=== PATIENT | male | born 1955 | race Caucasian/White ===

== ENCOUNTER → 2018-05-24 13:51 | Outpatient (CLI) | payer OTHER, SELFPAY ==
--- NOTE | 2018-05-24 13:55 | DI.RAD.S_ITS ---
PROCEDURE: XR SCAPULA RT INDICATIONS: Pleurodynia TECHNIQUE: 2 views of the scapula were acquired. COMPARISON: [facility], SIVA, XR RIBS RT MIN 3V W CXR 1V, 05/24/2018, 13:39. [facility], SIVA, CHEST 2 VIEW, 02/24/2011, 16:17. FINDINGS: Bones: There may be nondisplaced right scapula fracture involving the body of the scapula. No suspicious bony lesions. Visualized ribs appear intact. Soft tissues: Overlying soft tissues appear normal. IMPRESSION: Possible nondisplaced right scapular fracture. Dictated by: Angus Mosley M.D. on 05/24/2018 at 14:35 Approved by: Angus Mosley M.D. on 05/24/2018 at 14:37
--- NOTE | 2018-05-24 13:55 | DI.RAD.S_ITS ---
PROCEDURE: XR RIBS RT MIN 3V W CXR 1V INDICATIONS: fall TECHNIQUE: 3 views of the right ribs were acquired, along with a single view chest. COMPARISON: None. FINDINGS: Surgical changes and devices: None. Bones and chest wall: Slightly displaced fracture of the lateral right, fouth, fifth and sixth rib. No suspicious bony lesions. Overlying soft tissues appear unremarkable. Lungs and pleura: No pleural effusions or pneumothorax. Lungs appear clear. Mediastinum: Mediastinal contours appear normal. Heart size is normal. IMPRESSION: Right fourth, fifth and six rib fractures. Dictated by: Angus Mosley M.D. on 05/24/2018 at 14:29 Approved by: Angus Mosley M.D. on 05/24/2018 at 14:35
== END ==
PROVIDERS: Visit Provider Physician Assistant
DX: S22.41XA Multiple fractures of ribs, right side, initial encounter for closed fracture (principal); R07.81 Pleurodynia
CPT/HCPCS: 71101; 73010

== ENCOUNTER 2019-01-05 08:58 | Day surgery (SDC) | payer OTHER, SELFPAY ==
--- NOTE | 2019-01-05 | PATH_ITS ---
[facility] Accession Number: [id number] . 01 Material submitted: . TRANSVERSE POLYP . 02 Diagnosis: Transverse Colon, Polyp, Biopsies: Tubular adenoma. MRV/01/06/2019 . 02 Electronically signed: . Delisa Spence MD, Pathologist NPI- [id number] . 01 Gross description: . Received in one formalin-filled container, labeled with the patient's name and labeled transverse polyp, are two 0.2-0.4 cm portions of tissue, entirely submitted in one cassette. ([id number]) /FRR . 02 Pathologist provided ICD-10: D12.3 . 02 CPT . 800158 Performed at: 01 [facility] [address] [id number] MD Elroy Swain MD Phone: [phone] Performed at: 02 [facility] [address] [place], [place] [id number] MD Delisa Spence MD Phone: [phone]
[2019-01-05 09:54] VITALS: BP 158/78; PULSE 68; RESP 16; TEMP 36.9; O2SAT 68; BMI 36.6
[2019-01-05] MEDS: SODIUM CHLORIDE 0.9% 1,000 ML 200 ML IV (10:15)
--- NOTE | 2019-01-05 11:16 | PM.HP.1 ---
History of Present Illness Chief complaint: [id number] COLONOSCOPY W/POSS BX Patient History Social History household members: spouse Smoking Status: Never smoker alcohol intake: current Family & Social History Social History: household members spouse Tobacco & Substance use: Smoking Status Never smoker alcohol intake current Meds Home Medications Medication Instructions Recorded Confirmed Type aspirin 81 mg PO QDAY #0 08/08/17 History diltiazem HCl 240 mg PO QDAY #0 08/08/17 History cyclobenzaprine 10 mg tablet 10 mg PO TID PRN #20 tab 05/24/18 Rx Allergies Allergy/AdvReac Type Severity Reaction Status Date / Time No Known Drug Allergies Allergy Verified 01/05/19 10:12 Review of Systems Review of Systems All systems reviewed & are unremarkable except as noted in HPI and below Exam Vital Signs (past 8 hours): - 01/05/19 09:54 Temperature 98.4 F Pulse Rate 68 Respiratory Rate 16 Blood Pressure 158/78 H Pulse Oximetry 68 L Oxygen Delivery Method Room Air Narrative Exam Narrative: Awake alert oriented x3, pupils equal round reactive to light, lungs clear, heart regular rate rhythm, abdomen soft, nontender, nondistended, and no lower extremity edema Assessment & Plan Assessment & Plan narrative: Colonoscopy for colon cancer screening
[2019-01-05] MEDS: MIDAZOLAM 5 MG/5 ML VIAL IV (11:30)
[2019-01-05] MEDS: fentaNYL 250 MCG/5 ML INJ IV (11:30)
[2019-01-05 11:50] VITALS: BP 141/103; PULSE 60; RESP 12; TEMP 36.9; O2SAT 94
--- NOTE | 2019-01-05 11:53 | PM.OP.ENDO ---
Operative Date/Time/Diagnoses Date of procedure: 01/05/19 Procedure & Clinicians Study performed: Colonoscopy with biopsy Moderate conscious sedation was administered by the endoscopy nurse and supervised by the endoscopist. The following parameters were monitored: Oxygen saturation, heart rate, blood pressure, and response to care. Sedation: 4 mg midazolam, 125 mcg fentanyl Indications: Colon cancer screening. History of colon polyps. Procedure Notes Procedure in detail: Prior to the procedure, history and physical was performed, and patient medications and allergies were reviewed. Preprocedure nursing history and assessment was reviewed. Patient identification and proposed procedure were verified by the physician and nurse in the procedure room. The physical status of the patient was reassessed after the procedure. After informed consent was obtained including risks, benefits, and alternatives, the scope was passed under direct vision. Throughout the procedure, the patient's blood pressure, pulse, and oxygen saturations were monitored continuously. The colonoscope was introduced through the anus and advanced to the cecum as identified by the appendiceal orifice and ileocecal valve. The patient tolerated the procedure well. Bowel prep was deemed adequate to detect polyps greater than 5 mm. Digital rectal examination and perianal examination unremarkable. Retroflexion revealed grade 1 internal hemorrhoids. Many medium mouth diverticula noted in the sigmoid and descending colon A 4 mm sessile polyp was removed from the transverse colon with a cold snare and biopsy forceps The appendiceal orifice was protuberant. This was probed with a biopsy forcep and seemed firm. No mucosal abnormalities were noted Impression: Internal hemorrhoids Left-sided diverticulosis 4 mm polyp removed from the transverse colon Abnormal appearing appendiceal orifice. Sedation minutes: 21 Complications: other (EBL minimal. No complications) Plan for aftercare: Consider performing a CT of the abdomen and pelvis with IV contrast to further evaluate the appendix Follow-up pathology results Repeat colonoscopy in 5 years for screening purposes High fiber diet Resume home medications Discharged home with escort
[2019-01-05 11:55] VITALS: BP 143/94; PULSE 66; RESP 12; TEMP 36.9; O2SAT 94
[2019-01-05 12:00] VITALS: BP 126/87; PULSE 68; RESP 12; TEMP 36.6; O2SAT 97
[2019-01-05 12:02] VITALS: BP 126/88; PULSE 62; RESP 15; TEMP 36.9; O2SAT 96
[2019-01-05 12:15] VITALS: BP 122/80; PULSE 68; RESP 20; TEMP 36.9; O2SAT 98
== END 2019-01-05 12:15 | disposition home or self-care (01) ==
PROVIDERS: PCP Internal Medicine; Visit Provider Internal Medicine
PROC: 0DJD8ZZ Inspection of Lower Intestinal Tract, Via Natural or Artificial Opening Endoscopic (ICD-10-PCS; CPT 45378; principal; 2019-01-05 10:30)
DX: Z86.010 Personal history of colon polyps (principal); K57.30 Diverticulosis of large intestine without perforation or abscess without bleeding; K64.0 First degree hemorrhoids; D12.3 Benign neoplasm of transverse colon
CPT/HCPCS: 45385; J2250; J3010

== ENCOUNTER → 2019-01-07 15:56 | Outpatient (CLI) | payer OTHER, SELFPAY ==
[2019-01-07 16:48] LABS: Blood Urea Nitrogen 16 mg/dL (9-20); Estimated Glomerular Filt Rate > 60.0 mL/min (>60)
== END ==
PROVIDERS: PCP Internal Medicine; Visit Provider Internal Medicine
DX: R93.3 Abnormal findings on diagnostic imaging of other parts of digestive tract (principal)
CPT/HCPCS: 36415; 82565; 84520

== ENCOUNTER → 2019-01-11 08:58 | Outpatient (CLI) | payer OTHER, SELFPAY ==
--- NOTE | 2019-01-11 | DI.CT.S_ITS ---
PROCEDURE: CT ABDOMEN PELVIS W CON INDICATIONS: Abnormal findings on diagnostic imaging of other TECHNIQUE: After the administration of oral and intravenous contrast, 5 mm thick sections acquired from the diaphragms to the symphysis. 5 mm thick coronal and sagittal reformats were performed. For radiation dose reduction, the following was used: automated exposure control, adjustment of mA and/or kV according to patient size. COMPARISON: None. FINDINGS: Image quality: Excellent. ABDOMEN: Lung bases: Lung bases are clear. Heart size is normal. Solid organs: Hepatic steatosis. Gallbladder unremarkable. Biliary system is non-dilated. Pancreas enhances normally. Spleen is normal in size and enhancement. No adrenal nodules. Kidneys are normal in size and enhancement, without hydronephrosis. Peritoneum and bowel: Stomach, small bowel, and colon loops are normal in caliber and wall thickness. No free fluid or air. Colonic diverticulosis is seen without evidence of acute complication. The appendix is normal in size however there is a 1 mm appendicolith seen at the orifice, image 56 series 2. No definite periappendiceal inflammatory stranding is identified. Rectum is grossly unremarkable Nodes and vessels: No retroperitoneal or mesenteric adenopathy. Aorta and inferior vena cava are normal in caliber. Miscellaneous: Umbilical hernia containing fat and a trace amount of fluid PELVIS: Genitourinary: Bladder partially decompressed otherwise grossly unremarkable. Miscellaneous: No inguinal hernias or adenopathy. Bones: No suspicious bony lesions. No vertebral body compression fractures. IMPRESSION: 1 mm appendicolith seen at the origin of the appendix. The appendix appears normal in size without definite adjacent inflammation. Recommend clinical and laboratory correlation. Colonic diverticulosis. Small umbilical hernia containing fat and fluid. Hepatic steatosis Dictated by: Esvin Phan M.D. on 01/11/2019 at 12:01 Approved by: Esvin Phan M.D. on 01/11/2019 at 12:08
== END ==
PROVIDERS: PCP Internal Medicine; Visit Provider Internal Medicine
DX: R93.3 Abnormal findings on diagnostic imaging of other parts of digestive tract (principal); K38.1 Appendicular concretions; K57.90 Diverticulosis of intestine, part unspecified, without perforation or abscess without bleeding; K42.9 Umbilical hernia without obstruction or gangrene; K76.0 Fatty (change of) liver, not elsewhere classified
CPT/HCPCS: 74177; Q9967

== ENCOUNTER 2019-04-23 10:15 | Emergency (ER) | payer OTHER, SELFPAY ==
[2019-04-23] VITALS (9 sets, daily range): BP systolic 122–165; BP diastolic 72–99; PULSE 55–81; RESP 14–19; TEMP 36.7; O2SAT 95–100
--- NOTE | 2019-04-23 10:29 | ED.CHESTPAIN ---
HPI - Chest Pain General Chief Complaint: Chest Pain Stated Complaint: went into Afib last night Time Seen by Provider: 04/23/19 10:29 Source: patient Mode of arrival: ambulatory Limitations: no limitations History of Present Illness HPI narrative: Patient is 63-year-old male who presents with atrial fibrillation. He has a history of paroxysmal atrial fibrillation. He said he was cardioverted in the emergency department 3 years ago he has not had any problems since. He takes an aspirin and Cardizem daily although he did take his Cardizem this morning. He denies dizziness lightheadedness. He just feels a irregular in his chest. He has no shortness of breath. He says he went into this less than 24 hours ago, thinks sometime last evening. He thought if he went to sleep it might convert itself. MD complaint: chest pain Duration: constant Onset: during rest Related Data Home Medications Medication Instructions Recorded Confirmed aspirin 81 mg PO QDAY #0 08/08/17 diltiazem HCl 240 mg PO QDAY #0 08/08/17 Previous Rx's Medication Instructions Recorded cyclobenzaprine 10 mg tablet 10 mg PO TID PRN #20 tab 05/24/18 Allergies Allergy/AdvReac Type Severity Reaction Status Date / Time No Known Drug Allergies Allergy Verified 01/05/19 10:12 Review of Systems Review of Systems GENERAL: Denies chills, fatigue, malaise, fever, sweats, travel HEENT: Denies sinus pain, ear pain, sore throat, difficulty swallowing, neck pain RESPIRATORY: Denies dyspnea, cough, wheezing, hemoptysis, sputum. CARDIOVASCULAR: See HPI GASTROINTESTINAL: Denies nausea, vomiting, abdominal pain, diarrhea, constipation, melena. : Denies dysuria, frequency, incontinence, hematuria, urinary retention, flank pain. MUSCULOSKELETAL: Denies weakness, joint pain, or bony pain SKIN: No rash, no erythema, no pruritus NEUROLOGIC: Denies weakness, dizziness, headache, numbness, change in speech, confusion PSYCHIATRIC: No concerning psychosocial issues. 12 point review of systems is negative except for those stated above and HPI [facility] Medical History Atrial fibrillation (Acute) Hyperlipidemia (Acute) Social History household members: spouse Smoking Status: Never smoker alcohol intake: current Social History household members: spouse Smoking Status: Never smoker alcohol intake: current Exam Initial Vital Signs Initial Vital Signs: Vital Signs Temperature 98.1 F 04/23/19 10:15 Pulse Rate 77 04/23/19 10:15 Respiratory Rate 18 04/23/19 10:15 Blood Pressure 165/88 H 04/23/19 10:15 Pulse Oximetry 99 04/23/19 10:15 GENERAL: Well-appearing, well-nourished and in no acute distress. HEENT: Head atraumatic,EOMI, pupils reactive CARDIOVASCULAR: Irregularly irregular RESPIRATORY: Breath sounds equal bilaterally, no wheezes rales or rhonchi. ABDOMEN: Soft, nontender. Normoactive bowel sounds all 4 quadrants. No guarding or rebound. : No CVA tenderness EXTREMITIES: Normal range of motion, no clubbing or edema. Neurovascularly intact NEUROLOGICAL: Alert and oriented x4.Normal gait and speech. Cranial nerves II through XII grossly intact. SKIN: Warm, dry, no laceration, no petechiae, no rashes or lesions. Procedures Cardioversion Consent Signed: Yes Indication: atrial fibrillation Cardiac rhythm prior to cardioversion: Atrial fibrillation Stability: Stable Number of attempts (shocks): 1 Joules used: 150 Procedural Sedation Patient Age: Patient is 5yrs or older Consent signed: Yes Time out performed: Yes Indication: cardioversion ASA Class: II Mallampati Airway Classification: Class II Preparation: eyewear manufacturing tech applied, pulse oximeter, capnometry used, supplemental O2 applied and reversal agents at bedside IV Etomidate dose (mg): 10 Intraservice time/total sedation time (min): 15 ED Sedation Level: Moderate (Concious) Complications: none Course Orders Ordered: ED Orders 04/23/19 10:20 Complete Blood Count AUTO DIFF Stat Comprehensive Metabolic Panel Stat Magnesium Stat Partial Thromboplastin Time Stat Prothrombin Time INR Stat Thyroid Stimulating Hormone Stat Troponin & CK Cardiac Panel Stat 04/23/19 10:38 XR chest 1V Stat 04/23/19 12:04 EKG-12 Lead Stat Discontinued Medications Aspirin (Aspirin Chew) 324 mg PO NOW ONE Stop: 04/23/19 12:35 Last Admin: 04/23/19 12:57 Dose: 324 mg Diltiazem HCl (Cardizem) 20 mg IV NOW ONE Stop: 04/23/19 10:38 Last Admin: 04/23/19 10:44 Dose: 20 mg Etomidate (Amidate) 10 mg IV NOW ONE Stop: 04/23/19 11:15 Last Admin: 04/23/19 11:58 Dose: 10 mg Sodium Chloride (Normal Saline 0.9%) 1,000 mls @ 1,000 mls/hr IV CONT JEREMI Last Infusion: 04/23/19 11:43 Dose: 1,000 mls/hr Admin: 04/23/19 10:43 Dose: 1,000 mls/hr Vital Signs - 8 hr 04/23/19 10:44 04/23/19 11:00 04/23/19 11:40 Pulse Rate 59 L 55 L 57 L Respiratory Rate 16 16 Blood Pressure 143/83 H Blood Pressure [Right Arm] 140/73 129/79 Pulse Oximetry 96 96 04/23/19 11:55 04/23/19 12:04 04/23/19 12:10 Pulse Rate 81 68 65 Respiratory Rate 18 14 19 Blood Pressure Blood Pressure [Right Arm] 154/72 H 153/88 H 145/99 H Pulse Oximetry 99 100 99 04/23/19 12:30 04/23/19 12:57 Pulse Rate 58 L 65 Respiratory Rate 15 16 Blood Pressure Blood Pressure [Right Arm] 122/82 Pulse Oximetry 95 MDM - Chest Pain Lab Data Attestation: I reviewed the patient's lab results. Result diagrams: 04/23/19 10:20 04/23/19 10:20 Lab Results 04/23/19 04/23/19 04/23/19 Range/Units 10:20 10:20 10:20 WBC 9.2 (4.5-11.0) X10^3/uL RBC 5.68 (4.5-5.9) X10^6/uL Hgb 17.8 H (13.5-17.5) g/dL Hct 51.8 (41-53) % MCV 91.2 (80-100) fL MCH 31.3 (26-34) PG MCHC 34.4 (30-36) % RDW 13.3 (11.6-14.8) % Plt Count 221 (150-400) X10^3/uL Neut % (Auto) 64.6 (50-75) % Lymph % (Auto) 24.2 L (25-40) % Callaway % (Auto) 10.1 (3-14) % Eos % (Auto) 0.9 L (2-4) % Baso % (Auto) 0.2 (0-2) % Neut # (Auto) 6000 (7397-5312) /uL Lymph # (Auto) 2200 (1357-8120) /uL Callaway # (Auto) 900 (0-900) /uL Eos # (Auto) 100 (0-450) /uL Baso # (Auto) 0 (0-100) /uL PT 12.5 (10.1-12.7) SECONDS INR 1.1 (0.9-1.3) APTT 36 (26.4-36.2) SECONDS Sodium 144 (137-145) mmol/L Potassium 3.8 (3.4-5.1) mmol/L Chloride 104 (98-107) mmol/L Carbon Dioxide 30 (22-32) mmol/L BUN 12 (9-20) mg/dL Creatinine 0.90 (0.66-1.25) mg/dL Estimated GFR > 60.0 (>60) mL/min BUN/Creatinine Ratio 13.3 (6-22) Glucose 131 H (80-110) mg/dL Calcium 9.6 (8.4-10.2) mg/dL Magnesium (1.6-2.3) mg/dL Total Bilirubin 1.3 (0.2-1.3) mg/dL AST 24 (17-59) IU/L ALT 24 (21-72) IU/L Alkaline Phosphatase 83 (38-126) U/L Total Creatine Kinase (55-170) U/L CK-MB (CK-2) CK-MB (CK-2) Rel Index Troponin I (0.01-0.034) ng/mL Total Protein 8.0 (6.3-8.2) g/dL Albumin 4.6 (3.5-5.0) g/dL Globulin 3.4 (1.7-4.1) g/dL Albumin/Globulin Ratio 1.4 (1.0-2.8) TSH (0.47-4.68) uIU/mL 04/23/19 04/23/19 Range/Units 10:20 10:20 WBC (4.5-11.0) X10^3/uL RBC (4.5-5.9) X10^6/uL Hgb (13.5-17.5) g/dL Hct (41-53) % MCV (80-100) fL MCH (26-34) PG MCHC (30-36) % RDW (11.6-14.8) % Plt Count (150-400) X10^3/uL Neut % (Auto) (50-75) % Lymph % (Auto) (25-40) % Callaway % (Auto) (3-14) % Eos % (Auto) (2-4) % Baso % (Auto) (0-2) % Neut # (Auto) (2519-0113) /uL Lymph # (Auto) (2946-3670) /uL Callaway # (Auto) (0-900) /uL Eos # (Auto) (0-450) /uL Baso # (Auto) (0-100) /uL PT (10.1-12.7) SECONDS INR (0.9-1.3) APTT (26.4-36.2) SECONDS Sodium (137-145) mmol/L Potassium (3.4-5.1) mmol/L Chloride (98-107) mmol/L Carbon Dioxide (22-32) mmol/L BUN (9-20) mg/dL Creatinine (0.66-1.25) mg/dL Estimated GFR (>60) mL/min BUN/Creatinine Ratio (6-22) Glucose (80-110) mg/dL Calcium (8.4-10.2) mg/dL Magnesium 2.1 (1.6-2.3) mg/dL Total Bilirubin (0.2-1.3) mg/dL AST (17-59) IU/L ALT (21-72) IU/L Alkaline Phosphatase (38-126) U/L Total Creatine Kinase 58 (55-170) U/L CK-MB (CK-2) TNP CK-MB (CK-2) Rel Index TNP Troponin I < 0.012 (0.01-0.034) ng/mL Total Protein (6.3-8.2) g/dL Albumin (3.5-5.0) g/dL Globulin (1.7-4.1) g/dL Albumin/Globulin Ratio (1.0-2.8) TSH 2.04 (0.47-4.68) uIU/mL Imaging Data Chest x-ray: Radiologist's impression: PROCEDURE: XR CHEST 1V INDICATIONS: chest pain TECHNIQUE: One view of the chest was acquired. COMPARISON: [facility], CHEST 2 VIEW, 02/24/2011, 16:17. FINDINGS: Surgical changes and devices: None. Lungs and pleura: Lungs are clear. No pleural effusions or pneumothorax. Mediastinum: Mediastinal contours appear normal. Heart size is normal. Bones and chest wall: No suspicious bony lesions. Overlying soft tissues appear unremarkable. IMPRESSION: Stable chest. No acute cardiopulmonary process is evident. Dictated by: Brendan Espino M.D. on 04/23/2019 at 10:14 ECG Data Attestation: I personally reviewed and interpreted this ECG as follows: Prior ECG tracings: available for review Interpretation: EKG 1. Atrial fibrillation rate [address] changes EKG 2. Sinus rhythm rate [address] changes MDM Narrative Medical decision making narrative: Patient feeling back to normal after cardioversion. He will follow up with PCP. SEGUN?DS?-VASc Score for Atrial Fibrillation Stroke Risk from [employer] on 04/23/2019 All calculations should be rechecked by clinician prior to use RESULT SUMMARY: 0 points Stroke risk was 0.2% per year in >90,000 patients (the [place] Atrial Fibrillation Cohort Study) and 0.3% risk of stroke/TIA/systemic embolism. One recommendation suggests a 0 score is ?low? risk and may not require anticoagulation; a 1 score is ?low-moderate? risk and should consider antiplatelet or anticoagulation, and score 2 or greater is ?moderate-high? risk and should otherwise be an anticoagulation candidate. INPUTS: Age ?> 0 = <65 Sex ?> 0 = Male CHF history ?> 0 = No Hypertension history ?> 0 = No Stroke/TIA/thromboembolism history ?> 0 = No Vascular disease history ?> 0 = No Diabetes history ?> 0 = No Discharge Plan Departure Patient Disposition: Home Clinical Impression: Paroxysmal A-fib Discharge Date/Time: 04/23/19 13:05 Interventions: ED Discharge Assessment Last Done: 04/23/19 14:05 Instructions: Atrial Fibrillation Activity Restrictions/Additional Instructions: *You have been diagnosed with atrial fibrillation *What to do: If you continue to have frequent episodes you may need change in medication please follow-up with your primary care provider and/or your housing management representative. Atrial fibrillation can and but you at risk for stroke *Continue to take medications as directed Aspirin 81 mg once daily *Follow up with your primary care provider in 2-3 days *Return to ER if you should have increasing chest pain heart palpitation or any new, worsening or concerning symptoms Prescriptions: No Action cyclobenzaprine 10 mg tablet 10 mg PO TID PRN (Reason: muscle spasm) Qty: 20 RF: 0 aspirin 81 MG tablet,delayed release (DR/EC) 81 mg PO QDAY Qty: 0 RF: 0 diltiazem HCl 240 MG capsule,extended release 24hr 240 mg PO QDAY Qty: 0 RF: 0 Referrals: Henry De Souza MD [Primary Care Provider] -
--- NOTE | 2019-04-23 10:37 | ED_ITS ---
HPI - Chest Pain General Chief Complaint: Chest Pain Stated Complaint: went into Afib last night Time Seen by Provider: 04/23/19 10:29 Source: patient Mode of arrival: ambulatory Limitations: no limitations History of Present Illness HPI narrative: Patient is 63-year-old male who presents with atrial fibrillation. He has a history of paroxysmal atrial fibrillation. He said he was cardioverted in the emergency department 3 years ago he has not had any problems since. He takes an aspirin and Cardizem daily although he did take his Cardizem this morning. He denies dizziness lightheadedness. He just feels a i rregular in his chest. He has no shortness of breath. He says he went into this less than 24 hours ago, thinks sometime last evening. He thought if he went to sleep it might convert itself. MD complaint: chest pain Duration: constant Onset: during rest Related Data Home Medications Medication Instructions Recorded Confirmed aspirin 81 mg PO QDAY #0 08/08/17 diltiazem HCl 240 mg PO QDAY #0 08/08/17 Previous Rx's Medication Instructions Recorded cyclobenzaprine 10 mg tablet 10 mg PO TID PRN #20 tab 05/24/18 Allergies Allergy/AdvReac Type Severity Reaction Status Date / Time No Known Drug Allergies Allergy Verified 01/05/19 10:12 Review of Systems Review of Systems GENERAL: Denies chills, fatigue, malaise, fever, sweats, travel HEENT: Denies sinus pain, ear pain, sore throat, difficulty swallowing, neck pain RESPIRATORY: Denies dyspnea, cough, wheezing, hemoptysis, sputum. CARDIOVASCULAR: See HPI GASTROINTESTINAL: Denies nausea, vomiting, abdominal pain, diarrhea, constipation, melena. : Denies dysuria, frequency, incontinence, hematuria, urinary retention, flank pain. MUSCULOSKELETAL: Denies weakness, joint pain, or bony pain SKIN: No rash, no erythema, no pruritus NEUROLOGIC: Denies weakness, dizziness, headache, numbness, change in speech, confusion PSYCHIATRIC: No concerning psychosocial issues. 12 point review of systems is negative except for those stated above and HPI COUNT INCLUDES [facility] Medical History Atrial fibrillation (Acute) Hyperlipidemia (Acute) Social History household members: spouse Smoking Status: Never smoker alcohol intake: current Social History household members: spouse Smoking Status: Never smoker alcohol intake: current Exam Initial Vital Signs Initial Vital Signs: Vital Signs Temperature 98.1 F 04/23/19 10:15 Pulse Rate 77 04/23/19 10:15 Respiratory Rate 18 04/23/19 10:15 Blood Pressure 165/88 H 04/23/19 10:15 Pulse Oximetry 99 04/23/19 10:15 GENERAL: Well-appearing, well-nourished and in no acute distress. HEENT: Head atraumatic,EOMI, pupils reactive CARDIOVASCULAR: Irregularly irregular RESPIRATORY: Breath sounds equal bilaterally, no wheezes rales or rhonchi. ABDOMEN: Soft, nontender. Normoactive bowel sounds all 4 quadrants. No guarding or rebound. : No CVA tenderness EXTREMITIES: Normal range of motion, no clubbing or edema. Neurovascularly inta ct NEUROLOGICAL: Alert and oriented x4.Normal gait and speech. Cranial nerves II through XII grossly intact. SKIN: Warm, dry, no laceration, no petechiae, no rashes or lesions. Procedures Cardioversion Consent Signed: Yes Indication: atrial fibrillation Cardiac rhythm prior to cardioversion: Atrial fibrillation Stability: Stable Number of attempts (shocks): 1 Joules used: 150 Procedural Sedation Patient Age: Patient is 5yrs or older Consent signed: Yes Time out performed: Yes Indication: cardioversion ASA Class: II Mallampati Airway Classification: Class II Preparation: awake overnight monitor applied, pulse oximeter, capnometry used, supplemental O2 applied and reversal agents at bedside IV Etomidate dose (mg): 10 Intraservice time/total sedation time (min): 15 ED Sedation Level: Moderate (Concious) Complications: none Course Orders Ordered: ED Orders 04/23/19 10:20 Complete Blood Count AUTO DIFF Stat Comprehensive Metabolic Panel Stat Magnesium Stat Partial Thromboplastin Time Stat Prothrombin Time INR Stat Thyroid Stimulating Hormone Stat Troponin & CK Cardiac Panel Stat 04/23/19 10:38 XR chest 1V Stat 04/23/19 12:04 EKG-12 Lead Stat Discontinued Medications Aspirin (Aspirin Chew) 324 mg PO NOW ONE Stop: 04/23/19 12:35 Last Admin: 04/23/19 12:57 Dose: 324 mg Diltiazem HCl (Cardizem) 20 mg IV NOW ONE Stop: 04/23/19 10:38 Last Admin: 04/23/19 10:44 Dose: 20 mg Etomidate (Amidate) 10 mg IV NOW ONE Stop: 04/23/19 11:15 Last Admin: 04/23/19 11:58 Dose: 10 mg Sodium Chloride (Normal Saline 0.9%) 1,000 mls @ 1,000 mls/hr IV CONT JEREMI Last Infusion: 04/23/19 11:43 Dose: 1,000 mls/hr Admin: 04/23/19 10:43 Dose: 1,000 mls/hr Vital Signs - 8 hr 04/23/19 10:44 04/23/19 11:00 04/23/19 11:40 Pulse Rate 59 L 55 L 57 L Respiratory Rate 16 16 Blood Pressure 143/83 H Blood Pressure [Right Arm] 140/73 129/79 Pulse Oximetry 96 96 04/23/19 11:55 04/23/19 12:04 04/23/19 12:10 Pulse Rate 81 68 65 Respiratory Rate 18 14 19 Blood Pressure Blood Pressure [Right Arm] 154/72 H 153/88 H 145/99 H Pulse Oximetry 99 100 99 04/23/19 12:30 04/23/19 12:57 Pulse Rate 58 L 65 Respiratory Rate 15 16 Blood Pressure Blood Pressure [Right Arm] 122/82 Pulse Oximetry 95 MDM - Chest Pain Lab Data Attestation: I reviewed the patient's lab results. Result diagrams: 04/23/19 10:20 04/23/19 10:20 Lab Results 04/23/19 04/23/19 04/23/19 Range/Units 10:20 10:20 10:20 WBC 9.2 (4.5-11.0) X10^3/uL RBC 5.68 (4.5-5.9) X10^6/uL Hgb 17.8 H (13.5-17.5) g/dL Hct 51.8 (41-53) % MCV 91.2 (80-100) fL MCH 31.3 (26-34) PG MCHC 34.4 (30-36) % RDW 13.3 (11.6-14.8) % Plt Count 221 (150-400) X10^3/uL Neut % (Auto) 64.6 (50-75) % Lymph % (Auto) 24.2 L (25-40) % [place] % (Auto) 10.1 (3-14) % Eos % (Auto) 0.9 L (2-4) % Baso % (Auto) 0.2 (0-2) % Neut # (Auto) 6000 (5156-5916) /uL Lymph # (Auto) 2200 (8421-9414) /uL [place] # (Auto) 900 (0-900) /uL Eos # (Auto) 100 (0-450) /uL Baso # (Auto) 0 (0-100) /uL PT 12.5 (10.1-12.7) SECONDS INR 1.1 (0.9-1.3) APTT 36 (26.4-36.2) SECONDS Sodium 144 (137-145) mmol/L Potassium 3.8 (3.4-5.1) mmol/L Chloride 104 (98-107) mmol/L Carbon Dioxide 30 (22-32) mmol/L BUN 12 (9-20) mg/dL Creatinine 0.90 (0.66-1.25) mg/dL Estimated GFR > 60.0 (>60) mL/min BUN/Creatinine Ratio 13.3 (6-22) Glucose 131 H (80-110) mg/dL Calcium 9.6 (8.4-10.2) mg/dL Magnesium (1.6-2.3) mg/dL Total Bilirubin 1.3 (0.2-1.3) mg/dL AST 24 (17-59) IU/L ALT 24 (21-72) IU/L Alkaline Phosphatase 83 (38-126) U/L Total Creatine Kinase (55-170) U/L CK-MB (CK-2) CK-MB (CK-2) Rel Index Troponin I (0.01-0.034) ng/mL Total Protein 8.0 (6.3-8.2) g/dL Albumin 4.6 (3.5-5.0) g/dL Globulin 3.4 (1.7-4.1) g/dL Albumin/Globulin Ratio 1.4 (1.0-2.8) TSH (0.47-4.68) uIU/mL 04/23/19 04/23/19 Range/Units 10:20 10:20 WBC (4.5-11.0) X10^3/uL RBC (4.5-5.9) X10^6/uL Hgb (13.5-17.5) g/dL Hct (41-53) % MCV (80-100) fL MCH (26-34) PG MCHC (30-36) % RDW (11.6-14.8) % Plt Count (150-400) X10^3/uL Neut % (Auto) (50-75) % Lymph % (Auto) (25-40) % [place] % (Auto) (3-14) % Eos % (Auto) (2-4) % Baso % (Auto) (0-2) % Neut # (Auto) (7061-0630) /uL Lymph # (Auto) (2996-0602) /uL [place] # (Auto) (0-900) /uL Eos # (Auto) (0-450) /uL Baso # (Auto) (0-100) /uL PT (10.1-12.7) SECONDS INR (0.9-1.3) APTT (26.4-36.2) SECONDS Sodium (137-145) mmol/L Potassium (3.4-5.1) mmol/L Chloride (98-107) mmol/L Carbon Dioxide (22-32) mmol/L BUN (9-20) mg/dL Creatinine (0.66-1.25) mg/dL Estimated GFR (>60) mL/min BUN/Creatinine Ratio (6-22) Glucose (80-110) mg/dL Calcium (8.4-10.2) mg/dL Magnesium 2.1 (1.6-2.3) mg/dL Total Bilirubin (0.2-1.3) mg/dL AST (17-59) IU/L ALT (21-72) IU/L Alkaline Phosphatase (38-126) U/L Total Creatine Kinase 58 (55-170) U/L CK-MB (CK-2) TNP CK-MB (CK-2) Rel Index TNP Troponin I < 0.012 (0.01-0.034) ng/mL Total Protein (6.3-8.2) g/dL Albumin (3.5-5.0) g/dL Globulin (1.7-4.1) g/dL Albumin/Globulin Ratio (1.0-2.8) TSH 2.04 (0.47-4.68) uIU/mL Imaging Data Chest x-ray: Radiologist's impression: PROCEDURE: XR CHEST 1V INDICATIONS: chest pain TECHNIQUE: One view of the chest was acquired. COMPARISON: [facility], CHEST 2 VIEW, 02/24/2011, 16:17. FINDINGS: Surgical changes and devices: None. Lungs and pleura: Lungs are clear. No pleural effusions or pneumothorax. Mediastinum: Mediastinal contours appear normal. Heart size is normal. Bones and chest wall: No suspicious bony lesions. Overlying soft tissues appear unremarkable. IMPRESSION: Stable chest. No acute cardiopulmonary process is evident. Dictated by: Brendan Espino M.D. on 04/23/2019 at 10:14 ECG Data Attestation: I personally reviewed and interpreted this ECG as follows: Prior ECG tracings: available for review Interpretation: EKG 1. Atrial fibrillation rate [address] changes EKG 2. Sinus rhythm rate [address] changes MDM Narrative Medical decision making narrative: Patient feeling back to normal after cardioversion. He will follow up with PCP. SEGUN?DS?-VASc Score for Atrial Fibrillation Stroke Risk from [email or web address] on 04/23/2019 All calculations should be rechecked by clinician prior to use RESULT SUMMARY: 0 points Stroke risk was 0.2% per year in >90,000 patients (the [place] Atrial Fibrillation Cohort Study) and 0.3% risk of stroke/TIA/systemic embolism. One recommendation suggests a 0 score is ?low? risk and may not require anticoagulation; a 1 score is ?low-moderate? risk and should consider antiplatelet or anticoagulation, and score 2 or greater is ?moderate-high? risk and should otherwise be an anticoagulation candidate. INPUTS: Age ?> 0 = <65 Sex ?> 0 = Male CHF history ?> 0 = No Hypertension history ?> 0 = No Stroke/TIA/thromboembolism history ?> 0 = No Vascular disease history ?> 0 = No Diabetes history ?> 0 = No Discharge Plan Departure Patient Disposition: Home Clinical Impression: Paroxysmal A-fib Discharge Date/Time: 04/23/19 13:05 Interventions: ED Discharge Assessment Last Done: 04/23/19 14:05 Instructions: Atrial Fibrillation Activity Restrictions/Additional Instructions: *You have been diagnosed with atrial fibrillation *What to do: If you continue to have frequent episodes you may need change in medication please follow-up with your primary care provider and/or your manager trust. Atrial fibrillation can and but you at risk for stroke *Continue to take medications as directed Aspirin 81 mg once daily *Follow up with your primary care provider in 2-3 days *Return to ER if you should have increasing chest pain heart palpitation or any new, worsening or concerning symptoms Prescriptions: No Action cyclobenzaprine 10 mg tablet 10 mg PO TID PRN (Reason: muscle spasm) Qty: 20 RF: 0 aspirin 81 MG tablet,delayed release (DR/EC) 81 mg PO QDAY Qty: 0 RF: 0 diltiazem HCl 240 MG capsule,extended release 24hr 240 mg PO QDAY Qty: 0 RF: 0 Referrals: Henry De Souza MD [Primary Care Provider] -
[2019-04-23] MEDS: SODIUM CHLORIDE 0.9% 1,000 ML 1000 ML IV (10:43)
[2019-04-23] MEDS: dilTIAZem 5 MG/ML SDV 20 MG IV (10:44)
[2019-04-23 10:56] LABS: INR 1.1 (0.9-1.3); Prothrombin Time 12.5 SECONDS (10.1-12.7)
[2019-04-23 10:58] LABS: Add Manual Diff / Slide Review NO; Basophils Absolute Auto 0 /uL (0-100); Basophils Percent Auto 0.2 % (0-2); Eosinophils Absolute Auto 100 /uL (0-450); Eosinophils Percent Auto 0.9 % (2-4); Hematocrit 51.8 % (41-53); Hemoglobin 17.8 g/dL (13.5-17.5); Lymphocytes Absolute Auto 2200 /uL (1100-4500); Lymphocytes Percent Auto 24.2 % (25-40); Mean Corpuscular HGB Conc 34.4 % (30-36); Mean Corpuscular Hemoglobin 31.3 PG (26-34); Mean Corpuscular Volume 91.2 fL (80-100); Monocytes Absolute Auto 900 /uL (0-900); Monocytes Percent Auto 10.1 % (3-14); Neutrophils Absolute Auto 6000 /uL (1500-7000); Neutrophils Percent Auto 64.6 % (50-75); Platelet Count 221 X10^3/uL (150-400); Red Blood Cell Count 5.68 X10^6/uL (4.5-5.9); Red Cell Distribution Width 13.3 % (11.6-14.8); White Blood Cell Count 9.2 X10^3/uL (4.5-11.0)
[2019-04-23 10:59] LABS: PTT Partial Thromboplastin Tim 36 SECONDS (26.4-36.2)
[2019-04-23 11:00] LABS: Creatine Kinase 58 U/L (55-170); Magnesium 2.1 mg/dL (1.6-2.3)
[2019-04-23 11:01] LABS: Alanine Aminotransferase 24 IU/L (21-72); Albumin 4.6 g/dL (3.5-5.0); Albumin Globulin Ratio 1.4 (1.0-2.8); Alkaline Phosphatase 83 U/L (38-126); Aspartate Aminotransferase 24 IU/L (17-59); BUN Creatinine Ratio 13.3 (6-22); Bilirubin Total 1.3 mg/dL (0.2-1.3); Blood Urea Nitrogen 12 mg/dL (9-20); Calcium 9.6 mg/dL (8.4-10.2); Carbon Dioxide 30 mmol/L (22-32); Chloride 104 mmol/L (98-107); Estimated Glomerular Filt Rate > 60.0 mL/min (>60); Globulin 3.4 g/dL (1.7-4.1); Glucose 131 mg/dL (80-110); HEMOLYSIS < 15 (0-50); Potassium 3.8 mmol/L (3.4-5.1); Sodium 144 mmol/L (137-145)
[2019-04-23 11:13] LABS: Troponin I < 0.012 ng/mL (0.01-0.034)
[2019-04-23 11:41] LABS: Thyroid Stimulating Hormone 2.04 uIU/mL (0.47-4.68)
[2019-04-23] MEDS: ETOMIDATE 2 MG/ML VIAL 10 MG IV (11:58)
[2019-04-23] MEDS: ASPIRIN 81 MG TAB 324 MG PO (12:57)
--- NOTE | 2019-04-23 13:48 | PC.NURSE ---
pt tolerated cardioversion well. pt spouse back to room after conversion.
== END 2019-04-23 13:05 | disposition home or self-care (01) ==
PROVIDERS: Emergency Provider Emergency Medicine; PCP Internal Medicine
DX: I48.0 Paroxysmal atrial fibrillation (principal); Z79.82 Long term (current) use of aspirin
CPT/HCPCS: 36591; 71045; 80053; 82550; 83735; 84443; 84484; 85025; 85610; 85730; 92960; 93005; 93010; 93041; 94770; 96361; 96374; 96375; 99285

== ENCOUNTER 2020-03-31 13:59 | Emergency (ER) | payer OTHER, SELFPAY ==
[2020-03-31] VITALS (13 sets, daily range): BP systolic 122–173; BP diastolic 61–104; PULSE 61–100; RESP 12–27; TEMP 36.9; O2SAT 93–98; BMI 36.6
--- NOTE | 2020-03-31 14:17 | DI.RAD.S_ITS ---
PROCEDURE: XR CHEST 1V INDICATIONS: afib TECHNIQUE: One view of the chest was acquired. COMPARISON: [facility], CR, XR CHEST 1V, 04/23/2019, 11:02. FINDINGS: Surgical changes and devices: None. Lungs and pleura: Lungs are clear. No pleural effusions or pneumothorax. Mediastinum: Mediastinal contours appear normal. The heart appears to be enlarged. There is aortic atherosclerosis. Bones and chest wall: No suspicious bony lesions. Overlying soft tissues appear unremarkable. IMPRESSION: No acute cardiopulmonary process is evident. Dictated by: Brendan Espino M.D. on 03/31/2020 at 13:40 Approved by: Brendan Espino M.D. on 03/31/2020 at 13:42
[2020-03-31 14:29] LABS: Add Manual Diff / Slide Review NO; Basophils Absolute Auto 0 /uL (0-100); Basophils Percent Auto 0.5 % (0-2); Eosinophils Absolute Auto 0 /uL (0-450); Eosinophils Percent Auto 0.5 % (2-4); Hemoglobin 17.5 g/dL (13.5-17.5); Lymphocytes Absolute Auto 2400 /uL (1100-4500); Lymphocytes Percent Auto 30.4 % (25-40); Mean Corpuscular HGB Conc 35.6 % (30-36); Mean Corpuscular Hemoglobin 32.4 PG (26-34); Mean Corpuscular Volume 90.8 fL (80-100); Monocytes Absolute Auto 800 /uL (0-900); Monocytes Percent Auto 10.4 % (3-14); Neutrophils Absolute Auto 4600 /uL (1500-7000); Neutrophils Percent Auto 58.2 % (50-75); Platelet Count 191 X10^3/uL (150-400); Red Blood Cell Count 5.39 X10^6/uL (4.5-5.9); Red Cell Distribution Width 13.7 % (11.6-14.8); White Blood Cell Count 7.9 X10^3/uL (4.5-11.0)
[2020-03-31 14:30] LABS: Prothrombin Time 11.6 SECONDS (10.1-12.7)
[2020-03-31 14:33] LABS: PTT Partial Thromboplastin Tim 31 SECONDS (26.4-36.2)
[2020-03-31 14:39] LABS: Alanine Aminotransferase 36 IU/L (<50); Albumin 4.7 g/dL (3.5-5.0); Albumin Globulin Ratio 1.4 (1.0-2.8); Alkaline Phosphatase 87 U/L (38-126); Aspartate Aminotransferase 50 IU/L (17-59); Bilirubin Total 0.9 mg/dL (0.2-1.3); Blood Urea Nitrogen 15 mg/dL (9-20); Calcium 9.3 mg/dL (8.4-10.2); Carbon Dioxide 27 mmol/L (22-32); Chloride 105 mmol/L (98-107); Creatine Kinase 70 U/L (55-170); Estimated Glomerular Filt Rate > 60.0 mL/min (>60); Globulin 3.3 g/dL (1.7-4.1); Glucose 114 mg/dL (80-110); HEMOLYSIS 21 (0-50); Magnesium 2.1 mg/dL (1.6-2.3); Potassium 3.8 mmol/L (3.4-5.1); Sodium 138 mmol/L (137-145)
[2020-03-31 14:50] LABS: Troponin I < 0.012 ng/mL (0.01-0.034)
--- NOTE | 2020-03-31 14:50 | ED_ITS ---
HPI - Arrhythmia/Palpitations <Cristo Kidd MD - Last Filed: 04/01/20 07:55> General Chief Complaint: Arrhythmia/Palpitations Stated Complaint: AFIB Time Seen by Provider: 03/31/20 14:23 Source: patient Mode of arrival: Ambulatory Limitations: no limitations History of Present Illness HPI narrative: Patient here for palpitations. History atrial fibrillation. On Cardizem. Is on baby aspirin daily. He is not on Coumadin. Denies any chest pain dyspnea. No numbness tingling weakness. 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 Onset at 12:00 p.m. today. complaint: skipped beats, palpitations, irregular heart beat and atrial fibrillation Related Data Home Medications Medication Instructions Recorded Confirmed aspirin 81 mg PO QDAY #0 08/08/17 03/31/20 diltiazem HCl 240 mg PO QDAY #0 08/08/17 03/31/20 rosuvastatin 10 mg PO DAILY 03/31/20 03/31/20 Allergies Allergy/AdvReac Type Severity Reaction Status Date / Time No Known Drug Allergies Allergy Verified 03/31/20 14:12 Review of Systems <Cristo Kidd MD - Last Filed: 04/01/20 07:55> Review of Systems Narrative: GENERAL: Denies chills, fatigue, malaise, fever, sweats. HEENT: Denies sinus pain, ear pain, sore throat, difficulty swallowing, dizziness. RESPIRATORY: Denies dyspnea, cough, wheezing, hemoptysis, sputum. CARDIOVASCULAR: Denies chest pain, complains of palpitations GASTROINTESTINAL: Denies nausea, vomiting, abdominal pain, diarrhea, constipation, melena. : Denies dysuria, frequency, incontinence, hematuria, urinary retention. MUSCULOSKELETAL: denies weakness, joint pain, or bony pain SKIN: Denies rash, skin lesions, or other NEUROLOGIC: Denies weakness, headache, numbness, change in speech, confusion, seizures, incoordination. PSYCHIATRIC: No concerning psychosocial issues. ROS Unobtainable: All systems reviewed & are unremarkable except as noted in HPI and below Patient History <Cristo Kidd MD - Last Filed: 04/01/20 07:55> Medical History Atrial fibrillation (Acute) Hyperlipidemia (Acute) Social History household members: spouse Smoking Status: Never smoker alcohol intake: current Smoking Status: Never smoker alcohol intake frequency: 0-2 drinks per day Substance Use Type: marijuana Exam <Cristo Kidd MD - Last Filed: 04/01/20 07:55> Narrative Exam Narrative: GENERAL: patient appears stated age. Well-nourished, well- developed patient, in no distress, not toxic HEAD: Atraumatic. Normocephalic. EYES: Pupils equal round and reactive. Extraocular motions intact. No scleral icterus. No injection or drainage. ENT: Nose without bleeding, purulent drainage. Throat without erythema, tonsillar hypertrophy or exudate. Airway patent. NECK: Trachea midline. Non tender CARDIOVASCULAR: Irregular irregular rhythm. RESPIRATORY: Clear to auscultation. Breath sounds equal bilaterally. No wheezes, rales, or rhonchi. GASTROINTESTINAL: Abdomen soft, non-tender, nondistended. EXTREMITIES: No edema or joint tenderness. BACK: Nontender without deformity or crepitance. No flank tenderness. NEURO: AOx3. SKIN: No rash or erythema of visible areas Initial Vital Signs Initial Vital Signs: Vital Signs Temperature 98.4 F 03/31/20 14:12 Pulse Rate 84 03/31/20 14:12 Respiratory Rate 27 H 03/31/20 14:12 Blood Pressure 173/104 H 03/31/20 14:12 Pulse Oximetry 98 03/31/20 14:12 <Jaime Martini DO - Last Filed: 04/01/20 02:14> Initial Vital Signs Initial Vital Signs: Vital Signs Temperature 98.4 F 03/31/20 14:12 Pulse Rate 84 03/31/20 14:12 Respiratory Rate 27 H 03/31/20 14:12 Blood Pressure 173/104 H 03/31/20 14:12 Pulse Oximetry 98 03/31/20 14:12 <Jaime Martini DO - Last Filed: 04/01/20 02:14> Cardioversion Consent Signed: Yes Indication: symptomatic atrial fib Stability: Stable Number of attempts (shocks): 1 Joules used: 150 Cardiac rhythm post-cardioversion: NSR Procedural Sedation Consent signed: Yes Time out performed: Yes ASA Class: II Mallampati Airway Classification: Class III Preparation: conveyor line battery charger applied, pulse oximeter, capnometry used, supplemental O2 applied, suction/airway equipment at bedside and IV secured IV Propofol dose (mg): 100 Intraservice time/total sedation time (min): 10 ED Sedation Level: Moderate (Concious) Patient Tolerated Procedure: Well Course <Cristo Kidd MD - Last Filed: 04/01/20 07:55> Course Course Narrative: Addendum April 01, 2020 7:54 a.m.. Completing charts. Sign-out yesterday to Dr Martini, for electrocardioversion for patient. I did explain to the patient and as well as the nurses explained to him there were critical cases/patient's that needed attention for life-saving procedures, cardioversion would be done by oncoming attending at 6:00 p.m./Dr. Martini Orders Ordered: Discontinued Medications Sodium Chloride (Normal Saline 0.9%) 1,000 mls @ 1,000 mls/hr IV BOLUS ONE Stop: 03/31/20 16:32 Last Infusion: 03/31/20 19:54 Dose: 0 mls/hr Documented by: Infusion: 03/31/20 16:03 Dose: 0 mls/hr Documented by: Admin: 03/31/20 16:01 Dose: 1,000 mls/hr Documented by: YUNIER Propofol (Diprivan) 200 mg IV NOW ONE Stop: 03/31/20 15:58 Last Admin: 03/31/20 18:46 Dose: Not Given Documented by: DALLAS Propofol (Diprivan) 100 mg IV NOW ONE Stop: 03/31/20 18:27 Last Admin: 03/31/20 19:05 Dose: 100 mg Documented by: DALLAS Consultations Consultation #1: 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 Patient at this point will need to likely start Pradaxa, he sent prescription into patient's pharmacy, [facility]. Patient would benefit from cardioversion here. Biphasic started 200 joules/300 joules/360 joules, synchronized. Patient to stop aspirin Vital Signs Vital signs: Vital Signs - 8 hr 03/31/20 19:05 03/31/20 19:10 03/31/20 19:15 Pulse Rate 89 83 62 Respiratory Rate 16 16 16 Blood Pressure [Left Arm] 138/91 H 147/77 H 140/68 Pulse Oximetry 94 95 96 03/31/20 19:20 03/31/20 19:25 03/31/20 19:30 Pulse Rate 64 61 63 Respiratory Rate 16 16 14 Blood Pressure [Left Arm] 122/61 124/71 135/76 Pulse Oximetry 98 95 95 03/31/20 19:35 03/31/20 19:40 03/31/20 19:44 Pulse Rate 63 62 66 Respiratory Rate 12 12 12 Blood Pressure [Left Arm] 138/79 139/81 138/82 Pulse Oximetry 93 93 96 <Jaime Martini, DO - Last Filed: 04/01/20 02:14> Course Course Narrative: Patient received in sign-out from Dr. Kidd. I performed an independent history and physical exam and review the no. Patient is a strong candidate for electrocardioversion and cardiology has already weighed in Orders Ordered: Discontinued Medications Sodium Chloride (Normal Saline 0.9%) 1,000 mls @ 1,000 mls/hr IV BOLUS ONE Stop: 03/31/20 16:32 Last Infusion: 03/31/20 19:54 Dose: 0 mls/hr Documented by: Infusion: 03/31/20 16:03 Dose: 0 mls/hr Documented by: Admin: 03/31/20 16:01 Dose: 1,000 mls/hr Documented by: YUNIER Propofol (Diprivan) 200 mg IV NOW ONE Stop: 03/31/20 15:58 Last Admin: 03/31/20 18:46 Dose: Not Given Documented by: DALLAS Propofol (Diprivan) 100 mg IV NOW ONE Stop: 03/31/20 18:27 Last Admin: 03/31/20 19:05 Dose: 100 mg Documented by: DALLAS Vital Signs Vital signs: Vital Signs - 8 hr 03/31/20 19:05 03/31/20 19:10 03/31/20 19:15 Pulse Rate 89 83 62 Respiratory Rate 16 16 16 Blood Pressure [Left Arm] 138/91 H 147/77 H 140/68 Pulse Oximetry 94 95 96 03/31/20 19:20 03/31/20 19:25 03/31/20 19:30 Pulse Rate 64 61 63 Respiratory Rate 16 16 14 Blood Pressure [Left Arm] 122/61 124/71 135/76 Pulse Oximetry 98 95 95 03/31/20 19:35 03/31/20 19:40 03/31/20 19:44 Pulse Rate 63 62 66 Respiratory Rate 12 12 12 Blood Pressure [Left Arm] 138/79 139/81 138/82 Pulse Oximetry 93 93 96 MDM - Arrhythmia/Palpitations <Cristo Kidd MD - Last Filed: 04/01/20 07:55> Differential Diagnosis Differential diagnosis: Likely palpitations and artial fibrillation Lab Data Result diagrams: 03/31/20 14:13 03/31/20 14:13 Labs: Lab Results 03/31/20 03/31/20 03/31/20 Range/Units 14:13 14:13 14:13 WBC 7.9 (4.5-11.0) X10^3/uL RBC 5.39 (4.5-5.9) X10^6/uL Hgb 17.5 (13.5-17.5) g/dL Hct 49.0 (41-53) % MCV 90.8 (80-100) fL MCH 32.4 (26-34) PG MCHC 35.6 (30-36) % RDW 13.7 (11.6-14.8) % Plt Count 191 (150-400) X10^3/uL Neut % (Auto) 58.2 (50-75) % Lymph % (Auto) 30.4 (25-40) % [place] % (Auto) 10.4 (3-14) % Eos % (Auto) 0.5 L (2-4) % Baso % (Auto) 0.5 (0-2) % Neut # (Auto) 4600 (7900-7558) /uL Lymph # (Auto) 2400 (2904-9716) /uL [place] # (Auto) 800 (0-900) /uL Eos # (Auto) 0 (0-450) /uL Baso # (Auto) 0 (0-100) /uL PT 11.6 (10.1-12.7) SECONDS INR 1.0 (0.9-1.3) APTT 31 D (26.4-36.2) SECONDS Sodium 138 (137-145) mmol/L Potassium 3.8 (3.4-5.1) mmol/L Chloride 105 (98-107) mmol/L Carbon Dioxide 27 (22-32) mmol/L BUN 15 (9-20) mg/dL Creatinine 0.75 (0.66-1.25) mg/dL Estimated GFR > 60.0 (>60) mL/min BUN/Creatinine Ratio 20.0 (6-22) Glucose 114 H (80-110) mg/dL Calcium 9.3 (8.4-10.2) mg/dL Magnesium 2.1 (1.6-2.3) mg/dL Total Bilirubin 0.9 (0.2-1.3) mg/dL AST 50 (17-59) IU/L ALT 36 (<50) IU/L Alkaline Phosphatase 87 (38-126) U/L Total Creatine Kinase 70 (55-170) U/L CK-MB (CK-2) TNP CK-MB (CK-2) Rel Index TNP Troponin I < 0.012 (0.01-0.034) ng/mL Total Protein 8.0 (6.3-8.2) g/dL Albumin 4.7 (3.5-5.0) g/dL Globulin 3.3 (1.7-4.1) g/dL Albumin/Globulin Ratio 1.4 (1.0-2.8) TSH (0.47-4.68) uIU/mL 03/31/20 Range/Units 14:13 WBC (4.5-11.0) X10^3/uL RBC (4.5-5.9) X10^6/uL Hgb (13.5-17.5) g/dL Hct (41-53) % MCV (80-100) fL MCH (26-34) PG MCHC (30-36) % RDW (11.6-14.8) % Plt Count (150-400) X10^3/uL Neut % (Auto) (50-75) % Lymph % (Auto) (25-40) % [place] % (Auto) (3-14) % Eos % (Auto) (2-4) % Baso % (Auto) (0-2) % Neut # (Auto) (7903-9869) /uL Lymph # (Auto) (3049-6177) /uL [place] # (Auto) (0-900) /uL Eos # (Auto) (0-450) /uL Baso # (Auto) (0-100) /uL PT (10.1-12.7) SECONDS INR (0.9-1.3) APTT (26.4-36.2) SECONDS Sodium (137-145) mmol/L Potassium (3.4-5.1) mmol/L Chloride (98-107) mmol/L Carbon Dioxide (22-32) mmol/L BUN (9-20) mg/dL Creatinine (0.66-1.25) mg/dL Estimated GFR (>60) mL/min BUN/Creatinine Ratio (6-22) Glucose (80-110) mg/dL Calcium (8.4-10.2) mg/dL Magnesium (1.6-2.3) mg/dL Total Bilirubin (0.2-1.3) mg/dL AST (17-59) IU/L ALT (<50) IU/L Alkaline Phosphatase (38-126) U/L Total Creatine Kinase (55-170) U/L CK-MB (CK-2) CK-MB (CK-2) Rel Index Troponin I (0.01-0.034) ng/mL Total Protein (6.3-8.2) g/dL Albumin (3.5-5.0) g/dL Globulin (1.7-4.1) g/dL Albumin/Globulin Ratio (1.0-2.8) TSH 1.89 (0.47-4.68) uIU/mL ECG Data Attestation: I personally reviewed and interpreted this ECG as follows: Interpretation: EKG at 2:11 p.m. atrial fibrillation/right bundle branch block/ventricular rate 83 <Jaime Martini, DO - Last Filed: 04/01/20 02:14> Lab Data Labs: Lab Results 03/31/20 03/31/20 03/31/20 Range/Units 14:13 14:13 14:13 WBC 7.9 (4.5-11.0) X10^3/uL RBC 5.39 (4.5-5.9) X10^6/uL Hgb 17.5 (13.5-17.5) g/dL Hct 49.0 (41-53) % MCV 90.8 (80-100) fL MCH 32.4 (26-34) PG MCHC 35.6 (30-36) % RDW 13.7 (11.6-14.8) % Plt Count 191 (150-400) X10^3/uL Neut % (Auto) 58.2 (50-75) % Lymph % (Auto) 30.4 (25-40) % [place] % (Auto) 10.4 (3-14) % Eos % (Auto) 0.5 L (2-4) % Baso % (Auto) 0.5 (0-2) % Neut # (Auto) 4600 (6031-2060) /uL Lymph # (Auto) 2400 (6590-1011) /uL [place] # (Auto) 800 (0-900) /uL Eos # (Auto) 0 (0-450) /uL Baso # (Auto) 0 (0-100) /uL PT 11.6 (10.1-12.7) SECONDS INR 1.0 (0.9-1.3) APTT 31 D (26.4-36.2) SECONDS Sodium 138 (137-145) mmol/L Potassium 3.8 (3.4-5.1) mmol/L Chloride 105 (98-107) mmol/L Carbon Dioxide 27 (22-32) mmol/L BUN 15 (9-20) mg/dL Creatinine 0.75 (0.66-1.25) mg/dL Estimated GFR > 60.0 (>60) mL/min BUN/Creatinine Ratio 20.0 (6-22) Glucose 114 H (80-110) mg/dL Calcium 9.3 (8.4-10.2) mg/dL Magnesium 2.1 (1.6-2.3) mg/dL Total Bilirubin 0.9 (0.2-1.3) mg/dL AST 50 (17-59) IU/L ALT 36 (<50) IU/L Alkaline Phosphatase 87 (38-126) U/L Total Creatine Kinase 70 (55-170) U/L CK-MB (CK-2) TNP CK-MB (CK-2) Rel Index TNP Troponin I < 0.012 (0.01-0.034) ng/mL Total Protein 8.0 (6.3-8.2) g/dL Albumin 4.7 (3.5-5.0) g/dL Globulin 3.3 (1.7-4.1) g/dL Albumin/Globulin Ratio 1.4 (1.0-2.8) TSH (0.47-4.68) uIU/mL 03/31/20 Range/Units 14:13 WBC (4.5-11.0) X10^3/uL RBC (4.5-5.9) X10^6/uL Hgb (13.5-17.5) g/dL Hct (41-53) % MCV (80-100) fL MCH (26-34) PG MCHC (30-36) % RDW (11.6-14.8) % Plt Count (150-400) X10^3/uL Neut % (Auto) (50-75) % Lymph % (Auto) (25-40) % [place] % (Auto) (3-14) % Eos % (Auto) (2-4) % Baso % (Auto) (0-2) % Neut # (Auto) (4887-6528) /uL Lymph # (Auto) (9451-2340) /uL [place] # (Auto) (0-900) /uL Eos # (Auto) (0-450) /uL Baso # (Auto) (0-100) /uL PT (10.1-12.7) SECONDS INR (0.9-1.3) APTT (26.4-36.2) SECONDS Sodium (137-145) mmol/L Potassium (3.4-5.1) mmol/L Chloride (98-107) mmol/L Carbon Dioxide (22-32) mmol/L BUN (9-20) mg/dL Creatinine (0.66-1.25) mg/dL Estimated GFR (>60) mL/min BUN/Creatinine Ratio (6-22) Glucose (80-110) mg/dL Calcium (8.4-10.2) mg/dL Magnesium (1.6-2.3) mg/dL Total Bilirubin (0.2-1.3) mg/dL AST (17-59) IU/L ALT (<50) IU/L Alkaline Phosphatase (38-126) U/L Total Creatine Kinase (55-170) U/L CK-MB (CK-2) CK-MB (CK-2) Rel Index Troponin I (0.01-0.034) ng/mL Total Protein (6.3-8.2) g/dL Albumin (3.5-5.0) g/dL Globulin (1.7-4.1) g/dL Albumin/Globulin Ratio (1.0-2.8) TSH 1.89 (0.47-4.68) uIU/mL Discharge Plan Departure Patient Disposition: Home Clinical Impression: Atrial fibrillation Qualifiers: Atrial fibrillation type: paroxysmal Qualified Code(s): I48.0 - Paroxysmal atrial fibrillation Discharge Date/Time: 03/31/20 19:54 Instructions: DI for Atrial Fibrillation Activity Restrictions/Additional Instructions: *You have been diagnosed with [paroxysmal AFib] *What to do: *Take medications as directed: Your 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 Please pick it up as soon as possible begin taking it no later than tomorrow. STOP TAKING ASPIRIN, per your fishing boat captain request. *Follow up with your cardiology provider in 2-3 days, call for an appointment. Let them know you were seen in the Emergency Department and that we ask that you be seen in follow up *Return to ER if you should have any new, worsening or concerning symptoms Prescriptions: No Action aspirin 81 MG tablet,delayed release (DR/EC) 81 mg PO QDAY Qty: 0 RF: 0 diltiazem HCl 240 MG capsule,extended release 24hr 240 mg PO QDAY Qty: 0 RF: 0 rosuvastatin 10 mg tablet 10 mg PO DAILY RF: 0 Referrals: Henry De Souza MD [Primary Care Provider] -
[2020-03-31 15:18] LABS: Thyroid Stimulating Hormone 1.89 uIU/mL (0.47-4.68)
[2020-03-31] MEDS: SODIUM CHLORIDE 0.9% 1,000 ML 1000 ML IV (16:01)
[2020-03-31] MEDS: propofoL 200 MG/20 ML VIAL 100 MG IV (19:05)
== END 2020-03-31 19:54 | disposition home or self-care (01) ==
PROVIDERS: Emergency Medicine; Emergency Provider Emergency Medicine; PCP Internal Medicine
DX: I48.0 Paroxysmal atrial fibrillation (principal); Z79.82 Long term (current) use of aspirin
CPT/HCPCS: 36415; 71045; 80053; 82550; 83735; 84443; 84484; 85025; 85610; 85730; 92960; 93005; 93010; 99152; 99285; 99291; J2704

== ENCOUNTER → 2020-11-19 19:51 | Outpatient (ROUT) | payer OTHER, SELFPAY ==
[2020-11-19 20:26] LABS: Aspartate Aminotransferase 29 IU/L (17-59); BUN Creatinine Ratio 19.7 (6-22); Blood Urea Nitrogen 15 mg/dL (9-20); Calcium 9.5 mg/dL (8.4-10.2); Carbon Dioxide 31 mmol/L (22-32); Chloride 100 mmol/L (98-107); Cholesterol 172 mg/dL (140-199); Estimated Glomerular Filt Rate > 60.0 mL/min (>60); Glucose 107 mg/dL (80-110); HDL Cholesterol 53 mg/dL (40-60); HEMOLYSIS < 15 (0-50); LDL Cholesterol Calculated 76 mg/dL (<100); Potassium 4.6 mmol/L (3.4-5.1); Sodium 136 mmol/L (137-145); Triglycerides 216 mg/dL (35-150)
[2020-11-19 20:57] LABS: Prostate Specific Antigen 0.427 ng/mL (0.10-4.00)
== END ==
PROVIDERS: PCP Internal Medicine; Visit Provider Internal Medicine
DX: Z00.00 Encounter for general adult medical examination without abnormal findings (principal); I10 Essential (primary) hypertension; E78.2 Mixed hyperlipidemia
CPT/HCPCS: 80048; 80061; 84153; 84450

== ENCOUNTER 2020-12-19 13:36 | Emergency (ER) | payer OTHER, SELFPAY ==
[2020-12-19] VITALS (28 sets, daily range): BP systolic 139–209; BP diastolic 82–111; PULSE 48–79; RESP 12–27; TEMP 36.8; O2SAT 77–100; BMI 35.9
--- NOTE | 2020-12-19 13:46 | DI.RAD.S_ITS ---
PROCEDURE: XR CHEST 1V INDICATIONS: chest pain TECHNIQUE: One view of the chest was acquired. COMPARISON: [facility], CR, XR CHEST 1V, 03/31/2020, 14:23. FINDINGS: Surgical changes and devices: None. Lungs and pleura: Lungs are clear. No pleural effusions or pneumothorax. Mediastinum: Mediastinal contours appear normal. Heart size is enlarged. Bones and chest wall: No suspicious bony lesions. Overlying soft tissues appear unremarkable. IMPRESSION: No acute process. Dictated by: Kristina Natarajan M.D. on 12/19/2020 at 13:57 Approved by: Kristina Natarajan M.D. on 12/19/2020 at 13:57
[2020-12-19 13:54] LABS: Add Manual Diff / Slide Review NO; Basophils Absolute Auto 0 /uL (0-100); Basophils Percent Auto 0.5 % (0-2); Eosinophils Absolute Auto 100 /uL (0-450); Eosinophils Percent Auto 0.8 % (2-4); Hematocrit 50.4 % (41-53); Hemoglobin 17.1 g/dL (13.5-17.5); Lymphocytes Absolute Auto 2200 /uL (1100-4500); Lymphocytes Percent Auto 27.1 % (25-40); Mean Corpuscular HGB Conc 33.9 % (30-36); Mean Corpuscular Hemoglobin 31.4 PG (26-34); Mean Corpuscular Volume 92.8 fL (80-100); Monocytes Absolute Auto 800 /uL (0-900); Monocytes Percent Auto 9.8 % (3-14); Neutrophils Absolute Auto 4900 /uL (1500-7000); Neutrophils Percent Auto 61.8 % (50-75); Platelet Count 191 X10^3/uL (150-400); Red Blood Cell Count 5.44 X10^6/uL (4.5-5.9); Red Cell Distribution Width 13.6 % (11.6-14.8); White Blood Cell Count 7.9 X10^3/uL (4.5-11.0)
[2020-12-19 14:00] LABS: Alanine Aminotransferase 39 IU/L (<50); Albumin 4.7 g/dL (3.5-5.0); Albumin Globulin Ratio 1.4 (1.0-2.8); Alkaline Phosphatase 78 U/L (38-126); Aspartate Aminotransferase 33 IU/L (17-59); BUN Creatinine Ratio 24.4 (6-22); Bilirubin Total 1.3 mg/dL (0.2-1.3); Blood Urea Nitrogen 19 mg/dL (9-20); Calcium 9.5 mg/dL (8.4-10.2); Carbon Dioxide 29 mmol/L (22-32); Chloride 104 mmol/L (98-107); Creatine Kinase 78 U/L (55-170); Estimated Glomerular Filt Rate > 60.0 mL/min (>60); Globulin 3.3 g/dL (1.7-4.1); Glucose 115 mg/dL (80-110); HEMOLYSIS 20 (0-50); Lipase 53 U/L (23-300); Potassium 4.4 mmol/L (3.4-5.1); Sodium 138 mmol/L (137-145)
[2020-12-19 14:02] LABS: INR 1.3 (0.9-1.3); Prothrombin Time 14.9 SECONDS (10.1-12.7)
[2020-12-19 14:05] LABS: PTT Partial Thromboplastin Tim 40 SECONDS (26.4-36.2)
[2020-12-19 14:12] LABS: Troponin I < 0.012 ng/mL (0.01-0.034)
--- NOTE | 2020-12-19 14:18 | ED.ARRPALP ---
HPI - Arrhythmia/Palpitations General Chief Complaint: Arrhythmia/Palpitations Stated Complaint: hx of a-fib recent episode at 10am Time Seen by Provider: 12/19/20 13:52 Source: patient Mode of arrival: Ambulatory Limitations: no limitations History of Present Illness HPI narrative: Patient is a 65-year-old male with history of paroxysmal atrial fibrillation on Xarelto and sotalol, has been cardioverted at least twice in the past the last was in March of 2020 presenting today with atrial fibrillation. He says he started feeling it this morning he feels some fluttering in his chest some mild shortness of breath. He is currently rate controlled with heart rate in the 70s no significant chest pain palpitations or shortness of breath. He is not sure that he was in it yesterday but does not believe that he was. He otherwise feels well. MD complaint: irregular heart beat and atrial fibrillation Severity: mild Context: occurred during rest Arrhythmia history: atrial fibrillation Related Data Home Medications Medication Instructions Recorded Confirmed aspirin 81 mg PO QDAY #0 08/08/17 03/31/20 rosuvastatin 10 mg PO DAILY 03/31/20 11/22/20 rivaroxaban 10 mg tablet 10 mg PO DAILY 11/22/20 11/22/20 sotalol 80 mg tablet 80 mg PO BID 11/22/20 11/22/20 Allergies Allergy/AdvReac Type Severity Reaction Status Date / Time No Known Drug Allergies Allergy Verified 12/19/20 13:45 Review of Systems Review of Systems Narrative: GENERAL: Denies chills, fatigue, malaise, fever, sweats, travel HEENT: Denies sinus pain, ear pain, sore throat, difficulty swallowing, neck pain RESPIRATORY: Denies dyspnea, cough, wheezing, hemoptysis, sputum. CARDIOVASCULAR: See HPI GASTROINTESTINAL: Denies nausea, vomiting, abdominal pain, diarrhea, constipation, melena. : Denies dysuria, frequency, incontinence, hematuria, urinary retention, flank pain. MUSCULOSKELETAL: Denies weakness, joint pain, or bony pain SKIN: No rash, no erythema, no pruritus NEUROLOGIC: Denies weakness, dizziness, headache, numbness, change in speech, confusion PSYCHIATRIC: No concerning psychosocial issues. 12 point review of systems is negative except for those stated above and HPI Patient History Medical History (Updated 12/19/20 @ 15:27 by Lani Rodriguez DO) Atrial fibrillation Hyperlipidemia Family History Father Loud snoring Hypertension Heart disease Family/Other Loud snoring Sleep apnea Social History household members: spouse Smoking Status: Never smoker alcohol intake: current Smoking Status: Never smoker alcohol intake frequency: 0-2 drinks per day Substance Use Type: marijuana Exam Initial Vital Signs Initial Vital Signs: Vital Signs Temperature 98.3 F 12/19/20 13:45 Pulse Rate 77 12/19/20 13:45 Respiratory Rate 17 12/19/20 13:45 Blood Pressure 177/111 H 12/19/20 13:45 Pulse Oximetry 98 12/19/20 13:45 GENERAL: [Well-appearing, well-nourished] and in [no acute] distress. HEENT: Head atraumatic,EOMI, pupils reactive, face symmetric, [moist] mucous membranes CARDIOVASCULAR: Regular rate and rhythm without murmurs, rubs or gallops. RESPIRATORY: Breath sounds equal bilaterally, no wheezes rales or rhonchi. ABDOMEN: Soft, nontender. Normoactive bowel sounds all 4 quadrants. No guarding or rebound. EXTREMITIES: Normal range of motion, no clubbing or edema. Neurovascularly intact NEUROLOGICAL: Alert and oriented x4.Normal gait and speech. Cranial nerves II through XII grossly intact. SKIN: Warm, dry, no laceration, no petechiae, no rashes or lesions. Procedures Cardioversion Consent Signed: Yes Stability: Stable Number of attempts (shocks): 2 Joules used: 150 and 200 Cardiac rhythm post-cardioversion: Normal sinus rhythm Procedural Sedation Consent signed: Yes Time out performed: Yes Indication: cardioversion ASA Class: I Preparation: panel monitor applied and pulse oximeter IV Etomidate dose (mg): 10 Intraservice time/total sedation time (min): 15 ED Sedation Level: Moderate (Concious) Patient Tolerated Procedure: Well Complications: none Course Orders Ordered: ED Orders 12/19/20 13:44 Complete Blood Count AUTO DIFF Stat Comprehensive Metabolic Panel Stat Lipase Stat Partial Thromboplastin Time Stat Prothrombin Time INR Stat Troponin & CK Cardiac Panel Stat 12/19/20 13:46 XR chest 1V Stat Discontinued Medications Etomidate (Etomidate 2 Mg/Ml 10 Ml Vial) 10 mg IV NOW ONE Stop: 12/19/20 14:44 Last Admin: 12/19/20 15:00 Dose: 10 mg Documented by: EVELYN Vital Signs Vital signs: Vital Signs - 8 hr 12/19/20 13:45 12/19/20 13:52 12/19/20 13:55 Temperature 98.3 F Pulse Rate 77 78 77 Respiratory Rate 17 18 16 Blood Pressure 177/111 H Pulse Oximetry 98 98 98 12/19/20 14:00 12/19/20 14:05 12/19/20 14:10 Temperature Pulse Rate 79 78 72 Respiratory Rate 17 19 15 Blood Pressure 153/83 H Pulse Oximetry 97 97 97 12/19/20 14:15 12/19/20 14:20 12/19/20 14:25 Temperature Pulse Rate 75 76 77 Respiratory Rate 16 15 26 H Blood Pressure Pulse Oximetry 96 96 97 12/19/20 14:30 12/19/20 14:35 12/19/20 14:40 Temperature Pulse Rate 75 77 75 Respiratory Rate 27 H 16 16 Blood Pressure 147/97 H Pulse Oximetry 97 97 96 12/19/20 14:45 12/19/20 14:52 12/19/20 14:55 Temperature Pulse Rate 75 73 78 Respiratory Rate 17 24 19 Blood Pressure Pulse Oximetry 96 96 98 12/19/20 15:00 12/19/20 15:01 12/19/20 15:03 Temperature Pulse Rate 77 77 77 Respiratory Rate 14 19 22 Blood Pressure 209/108 H Pulse Oximetry 99 99 99 12/19/20 15:05 12/19/20 15:10 12/19/20 15:11 Temperature Pulse Rate 79 51 L 50 L Respiratory Rate 23 16 17 Blood Pressure 163/95 H Pulse Oximetry 77 L 98 98 12/19/20 15:15 12/19/20 15:17 12/19/20 15:20 Temperature Pulse Rate 48 L 60 51 L Respiratory Rate 13 16 18 Blood Pressure 141/88 H 158/94 H Pulse Oximetry 96 97 12/19/20 15:25 12/19/20 15:30 12/19/20 15:35 Temperature Pulse Rate 50 L 50 L 50 L Respiratory Rate 16 21 19 Blood Pressure 148/90 H 149/88 H 149/85 H Pulse Oximetry 98 95 96 12/19/20 15:40 Temperature Pulse Rate 51 L Respiratory Rate 12 Blood Pressure 139/82 Pulse Oximetry 95 MDM - Arrhythmia/Palpitations Lab Data Attestation: I reviewed the patient's lab results. Result diagrams: 12/19/20 13:44 12/19/20 13:44 Labs: Lab Results 12/19/20 12/19/20 12/19/20 Range/Units 13:44 13:44 13:44 WBC 7.9 (4.5-11.0) X10^3/uL RBC 5.44 (4.5-5.9) X10^6/uL Hgb 17.1 (13.5-17.5) g/dL Hct 50.4 (41-53) % MCV 92.8 (80-100) fL MCH 31.4 (26-34) PG MCHC 33.9 (30-36) % RDW 13.6 (11.6-14.8) % Plt Count 191 (150-400) X10^3/uL Neut % (Auto) 61.8 (50-75) % Lymph % (Auto) 27.1 (25-40) % [place] % (Auto) 9.8 (3-14) % Eos % (Auto) 0.8 L (2-4) % Baso % (Auto) 0.5 (0-2) % Neut # (Auto) 4900 (1041-5611) /uL Lymph # (Auto) 2200 (6758-9535) /uL [place] # (Auto) 800 (0-900) /uL Eos # (Auto) 100 (0-450) /uL Baso # (Auto) 0 (0-100) /uL PT 14.9 H (10.1-12.7) SECONDS INR 1.3 (0.9-1.3) APTT 40 H D (26.4-36.2) SECONDS Sodium 138 (137-145) mmol/L Potassium 4.4 (3.4-5.1) mmol/L Chloride 104 (98-107) mmol/L Carbon Dioxide 29 (22-32) mmol/L BUN 19 (9-20) mg/dL Creatinine 0.78 (0.66-1.25) mg/dL Estimated GFR > 60.0 (>60) mL/min BUN/Creatinine Ratio 24.4 H (6-22) Glucose 115 H (80-110) mg/dL Calcium 9.5 (8.4-10.2) mg/dL Total Bilirubin 1.3 (0.2-1.3) mg/dL AST 33 (17-59) IU/L ALT 39 (<50) IU/L Alkaline Phosphatase 78 (38-126) U/L Total Creatine Kinase 78 (55-170) U/L CK-MB (CK-2) TNP CK-MB (CK-2) Rel Index TNP Troponin I < 0.012 (0.01-0.034) ng/mL Total Protein 8.0 (6.3-8.2) g/dL Albumin 4.7 (3.5-5.0) g/dL Globulin 3.3 (1.7-4.1) g/dL Albumin/Globulin Ratio 1.4 (1.0-2.8) Lipase 53 (23-300) U/L Urine Dip Bedside Urine Glucose Negative Bedside Urine Bilirubin - Negative Bedside Urine Ketone - Negative Urine Specific [place] 1.020 Bedside Urine Occult Blood +/- Bedside Urine pH 7.5 Bedside Urine Protein - Negative Bedside Urine Urobilinogen - Negative Bedside Urine Nitrite - Negative Bedside Urine Leukocytes - Negative Esterase Imaging Data Chest x-ray: Radiologist's Impresson: PROCEDURE: XR CHEST 1V INDICATIONS: chest pain TECHNIQUE: One view of the chest was acquired. COMPARISON: [facility], , XR CHEST 1V, 03/31/2020, 14:23. FINDINGS: Surgical changes and devices: None. Lungs and pleura: Lungs are clear. No pleural effusions or pneumothorax. Mediastinum: Mediastinal contours appear normal. Heart size is enlarged. Bones and chest wall: No suspicious bony lesions. Overlying soft tissues appear unremarkable. IMPRESSION: No acute process. Dictated by: Kristina Natarajan M.D. on 12/19/2020 at 13:57 Approved by: Kristina Natarajan M.D. on 12/19/2020 at 13:57 ECG Data Attestation: I personally reviewed and interpreted this ECG as follows: Prior ECG tracings: available for review Interpretation: Atrial fibrillation rate signal or no ST changes Normal sinus rhythm rate 51 p.r. interval 208 your as some 36 QTC 452 MDM Narrative Medical decision making narrative: Patient is anticoagulated on Xarelto symptoms less than 24 hours. He is a good candidate for cardioversion. He was cardioverted after 2 attempts and was feeling better afterwards. 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 Discharge Plan Departure Patient Disposition: Home Clinical Impression: Atrial fibrillation Instructions: DI for Atrial Fibrillation Activity Restrictions/Additional Instructions: *You have been diagnosed with atrial fibrillation *What to do: Please follow-up with your cargo services coordinator you may or may not be a candidate for an ablation *Continue to take medications as directed *Follow up with your primary care provider in 2-3 days *Return to ER if you should have chest pain palpitations shortness of breath or any new, worsening or concerning symptoms Prescriptions: No Action aspirin 81 MG tablet,delayed release (DR/EC) 81 mg PO QDAY Qty: 0 RF: 0 rosuvastatin 10 mg tablet 10 mg PO DAILY RF: 0 sotalol 80 mg tablet 80 mg PO BID RF: 0 rivaroxaban 10 mg tablet 10 mg PO DAILY RF: 0 Referrals: Henry De Souza MD [Primary Care Provider] -
[2020-12-19] MEDS: ETOMIDATE 2 MG/ML 10 ML VIAL 10 MG IV (15:00)
--- NOTE | 2020-12-19 15:04 | PC.NURSE ---
shock at 150j at 1504 and 200j at 1506. Pt is now back in NSR, hr 48. Speaking clearly at 1507. A&OX3
== END 2020-12-19 15:48 | disposition home or self-care (01) ==
PROVIDERS: Emergency Provider Emergency Medicine; PCP Internal Medicine
DX: I48.91 Unspecified atrial fibrillation (principal); Z79.01 Long term (current) use of anticoagulants; R06.02 Shortness of breath; Z79.82 Long term (current) use of aspirin
CPT/HCPCS: 36415; 71045; 80053; 81003; 82550; 83690; 84484; 85025; 85610; 85730; 92960; 93005; 99152; 99284; 99285

== ENCOUNTER → 2021-09-12 11:45 | Outpatient (CLI) | payer OTHER, SELFPAY ==
[2021-09-12 17:54] LABS: BUN Creatinine Ratio 22.7 (6-22); Blood Urea Nitrogen 17 mg/dL (9-20); Calcium 9.3 mg/dL (8.4-10.2); Carbon Dioxide 26 mmol/L (22-32); Chloride 103 mmol/L (98-107); Estimated Glomerular Filt Rate > 60.0 mL/min (>60); Glucose 99 mg/dL (80-110); HEMOLYSIS 22 (0-50); Sodium 137 mmol/L (137-145)
== END ==
PROVIDERS: PCP Internal Medicine; Referring Provider Nurse Practitioner Family; Visit Provider Nurse Practitioner Family
DX: Z51.81 Encounter for therapeutic drug level monitoring (principal); Z79.899 Other long term (current) drug therapy
CPT/HCPCS: 36415; 80048

== ENCOUNTER → 2022-03-06 10:59 | Outpatient (CLI) | payer OTHER, SELFPAY ==
[2022-03-06 11:54] LABS: Hematocrit 44.9 % (41-53); Hemoglobin 15.3 g/dL (13.5-17.5); Mean Corpuscular HGB Conc 34.2 % (30-36); Mean Corpuscular Hemoglobin 31.1 PG (26-34); Mean Corpuscular Volume 90.9 fL (80-100); Platelet Count 195 X10^3/uL (150-400); Red Blood Cell Count 4.93 X10^6/uL (4.5-5.9); Red Cell Distribution Width 14.3 % (11.6-14.8); White Blood Cell Count 5.6 X10^3/uL (4.5-11.0)
[2022-03-06 12:31] LABS: Alanine Aminotransferase 24 IU/L (<50); Albumin 4.2 g/dL (3.5-5.0); Albumin Globulin Ratio 1.5 (1.0-2.8); Alkaline Phosphatase 77 U/L (38-126); Aspartate Aminotransferase 24 IU/L (17-59); BUN Creatinine Ratio 17.7 (6-22); Bilirubin Total 1.2 mg/dL (0.2-1.3); Blood Urea Nitrogen 14 mg/dL (9-20); Calcium 9.3 mg/dL (8.4-10.2); Carbon Dioxide 28 mmol/L (22-32); Chloride 104 mmol/L (98-107); Cholesterol 162 mg/dL (140-199); Estimated Glomerular Filt Rate > 60 mL/min (>60); Globulin 2.8 g/dL (1.7-4.1); Glucose 108 mg/dL (80-110); HDL Cholesterol 55 mg/dL (40-60); HEMOLYSIS < 15 (0-50); LDL Cholesterol Calculated 80 mg/dL (<100); Potassium 4.7 mmol/L (3.4-5.1); Sodium 137 mmol/L (137-145); Triglycerides 134 mg/dL (35-150)
[2022-03-06 12:59] LABS: TSH w/ Reflex to FT4 1.69 uIU/mL (0.47-4.68)
== END ==
PROVIDERS: PCP Internal Medicine; Referring Provider Internal Medicine; Visit Provider Internal Medicine
DX: E78.2 Mixed hyperlipidemia (principal); I48.0 Paroxysmal atrial fibrillation; N40.0 Benign prostatic hyperplasia without lower urinary tract symptoms; Z79.01 Long term (current) use of anticoagulants
CPT/HCPCS: 36415; 80053; 80061; 84153; 84443; 85027

== ENCOUNTER 2022-06-30 08:55 | Emergency (ER) | payer MEDICARE, OTHER, SELFPAY ==
[2022-06-30] VITALS (30 sets, daily range): BP systolic 110–178; BP diastolic 70–99; PULSE 47–79; RESP 12–35; TEMP 37.1; O2SAT 95–99; BMI 35.9
--- NOTE | 2022-06-30 09:26 | ED_ITS ---
HPI - Arrhythmia/Palpitations General Chief Complaint: Arrhythmia/Palpitations Stated Complaint: went into afib yesterday Time Seen by Provider: 06/30/22 09:06 History of Present Illness HPI narrative: This 67-year-old man with known paroxysmal atrial fibrillation comes to the ER today with onset of atrial fibrillation yesterday. Feels a butterfly sensation in his chest and feels a startled sensation sometimes but has no chest pain or shortness of breath. His heart rate has not been fast. He takes sotalol and rivaroxaban and has missed no doses of these. He does not like the sensation of atrial fibrillation and would like cardioversion today. He denies recent illness such as URI symptoms cough, fever, chest pain, shortness of breath, GI symptoms or otherwise. Related Data Home Medications Medication Instructions Recorded Confirmed sotalol 80 mg tablet 80 mg PO BID 11/22/20 03/06/22 rivaroxaban 20 mg tablet (Xarelto) 20 mg PO DAILY 03/06/22 03/06/22 Previous Rx's Medication Instructions Recorded rosuvastatin 10 mg tablet 10 mg PO DAILY #90 tabs 03/21/22 Allergies Allergy/AdvReac Type Severity Reaction Status Date / Time No Known Drug Allergies Allergy Verified 03/06/22 09:44 Review of Systems Review of Systems Narrative: Complete review of systems is negative other than as noted above. Patient History Medical History Ankle pain Atrial fibrillation Chicken pox (~1962) Chronic anticoagulation Elevated blood pressure reading in office with white coat syndrome, without diagnosis of hypertension Encounter for general adult medical examination without abnormal findings Foot pain History of colon polyps Hyperlipidemia Mixed hyperlipidemia Obesity (BMI 30-39.9) Obstructive sleep apnea syndrome (~1979) Paroxysmal atrial fibrillation (~2010) Primary osteoarthritis involving multiple joints Surgical History Anesthesia History of Achilles tendon repair (~1958) History of foot surgery Status post left rotator cuff repair (~1984) Status post right ankle joint replacement (~2021) Family History Father Loud snoring Hypertension Heart disease Congestive heart failure Family/Other Loud snoring Sleep apnea Mother Cancer Social History household members: spouse Smoking Status: Never smoker alcohol intake: current Smoking Status: Never smoker alcohol intake frequency: 0-2 drinks per day Substance Use Type: marijuana Exam Narrative Exam Narrative: GENERAL: Alert, cooperative and in no distress. HEAD: Atraumatic. Normocephalic. EYES: Sclera are clear without icterus. Extraocular movements are full. ENT: No rhinorrhea. Oropharynx is moist. Mouth exam is benign. NECK: Supple. Full range of motion. CARDIOVASCULAR: Normal rate and rhythm without murmur gallop or rub. RESPIRATORY: Clear to auscultation. Breath sounds equal bilaterally. No wheezes, rales, or rhonchi. GASTROINTESTINAL: Abdomen soft, non-tender, nondistended. EXTREMITIES: No edema, full range of motion. No obvious trauma. BACK: Normal inspection, no CVA tenderness. NEURO: Nonfocal examination, normal speech, normal gait. SKIN: No rash or erythema of visible areas PSYCH: Normally oriented. Normal range of affect. Appropriate behavior Initial Vital Signs Initial Vital Signs: Vital Signs Pulse Rate 62 06/30/22 09:01 Pulse Oximetry 98 06/30/22 09:01 Procedures Cardioversion Time of Cardioversion: 12:22 Consent Signed: Yes Stability: Stable Number of attempts (shocks): 1 Joules used: 120 Cardiac rhythm post-cardioversion: Sinus bradycardia Procedural Sedation Time of procedure: 12:20 Consent signed: Yes Time out performed: Yes Indication: cardioversion ASA Class: II IV Propofol dose (mg): 80 Intraservice time/total sedation time (min): 6 ED Sedation Level: Moderate (Concious) Patient Tolerated Procedure: Well Complications: none Course Orders Ordered: ED Orders 06/30/22 08:00 COVID19 -Nasal RAPID/Pre-Proc Stat 06/30/22 09:04 EKG-12 Lead Routine 06/30/22 09:10 Basic Metabolic Panel Stat Complete Blood Count AUTO DIFF Stat Magnesium Stat Troponin & CK Cardiac Panel Stat 06/30/22 12:22 EKG-12 Lead Routine Discontinued Medications Propofol (Propofol 200 Mg/20 Ml Vial) 115 mg 1 mg/kg (115 mg) IV NOW ONE Stop: 06/30/22 10:09 Last Admin: 06/30/22 12:21 Dose: 80 mg Documented By: JANIE Vital Signs Vital signs: Vital Signs - 8 hr 06/30/22 09:14 06/30/22 09:01 06/30/22 09:04 Temperature 98.7 F Pulse Rate 70 62 63 Respiratory Rate 20 Blood Pressure 178/89 H Pulse Oximetry 99 98 99 Oxygen Delivery Method Room Air 06/30/22 09:04 06/30/22 09:30 06/30/22 09:31 Temperature Pulse Rate 64 Respiratory Rate 13 Blood Pressure 178/89 H 149/90 H Pulse Oximetry 97 Oxygen Delivery Method 06/30/22 09:31 06/30/22 10:00 06/30/22 10:00 Temperature Pulse Rate 60 65 Respiratory Rate 19 12 Blood Pressure 144/91 H Pulse Oximetry 96 95 Oxygen Delivery Method 06/30/22 10:30 06/30/22 10:30 06/30/22 11:00 Temperature Pulse Rate 60 Respiratory Rate 16 Blood Pressure 137/93 H 140/95 H Pulse Oximetry 95 Oxygen Delivery Method 06/30/22 11:00 06/30/22 11:30 06/30/22 11:30 Temperature Pulse Rate 66 79 Respiratory Rate 17 16 Blood Pressure 146/90 H Pulse Oximetry 96 98 Oxygen Delivery Method 06/30/22 12:00 06/30/22 12:00 06/30/22 12:10 Temperature Pulse Rate 65 Respiratory Rate 19 Blood Pressure 138/99 H 159/94 H Pulse Oximetry 98 Oxygen Delivery Method Room Air 06/30/22 12:10 06/30/22 12:12 06/30/22 12:12 Temperature Pulse Rate 73 74 Respiratory Rate 16 23 Blood Pressure 165/83 H Pulse Oximetry 98 98 Oxygen Delivery Method 06/30/22 12:14 06/30/22 12:14 06/30/22 12:16 Temperature Pulse Rate 76 Respiratory Rate 18 Blood Pressure 153/93 H 120/75 Pulse Oximetry 99 Oxygen Delivery Method 06/30/22 12:16 06/30/22 12:18 06/30/22 12:18 Temperature Pulse Rate 70 47 L Respiratory Rate 16 35 H Blood Pressure 135/75 Pulse Oximetry 99 99 Oxygen Delivery Method 06/30/22 12:20 06/30/22 12:20 06/30/22 12:22 Temperature Pulse Rate 48 L 47 L Respiratory Rate 23 20 Blood Pressure 136/73 Pulse Oximetry 98 97 Oxygen Delivery Method 06/30/22 12:22 06/30/22 12:24 06/30/22 12:24 Temperature Pulse Rate 48 L Respiratory Rate 16 Blood Pressure 127/71 114/70 Pulse Oximetry 97 Oxygen Delivery Method MDM - Arrhythmia/Palpitations Lab Data Result diagrams: 06/30/22 09:10 06/30/22 09:10 Labs: Lab Results 06/30/22 06/30/22 06/30/22 Range/Units 08:00 09:10 09:10 WBC 5.4 (4.5-11.0) X10^3/uL RBC 5.32 (4.5-5.9) X10^6/uL Hgb 16.8 (13.5-17.5) g/dL Hct 48.6 (41-53) % MCV 91.5 (80-100) fL MCH 31.7 (26-34) PG MCHC 34.6 (30-36) % RDW 14.1 (11.6-14.8) % Plt Count 185 (150-400) X10^3/uL Neut % (Auto) 55.4 (50-75) % Lymph % (Auto) 31.4 (25-40) % [place] % (Auto) 11.6 (3-14) % Eos % (Auto) 1.2 L (2-4) % Baso % (Auto) 0.4 (0-2) % Neut # (Auto) 3000 (1079-7863) /uL Lymph # (Auto) 1700 (5368-1340) /uL [place] # (Auto) 600 (0-900) /uL Eos # (Auto) 100 (0-450) /uL Baso # (Auto) 0 (0-100) /uL Sodium 138 (137-145) mmol/L Potassium 4.2 (3.4-5.1) mmol/L Chloride 106 (98-107) mmol/L Carbon Dioxide 28 (22-32) mmol/L BUN 17 (9-20) mg/dL Creatinine 0.87 (0.66-1.25) mg/dL Estimated GFR > 60 (>60) mL/min BUN/Creatinine Ratio 19.5 (6-22) Glucose 130 H (80-110) mg/dL Calcium 9.1 (8.4-10.2) mg/dL Magnesium 2.1 (1.6-2.3) mg/dL Total Creatine Kinase 48 L (55-170) U/L CK-MB (CK-2) TNP CK-MB (CK-2) Rel Index TNP Troponin I < 0.012 (0.01-0.034) ng/mL SARS-CoV-2 (PCR) Negative (Negative) ECG Data Interpretation: Post cardioversion EKG obtained at 12:22 p.m. shows a sinus rhythm at 48 beats per minute with no acute ST or T-wave changes right bundle branch block seen. MDM Narrative Medical decision making narrative: Patient with known atrial fibrillation intermittently on sotalol and rivaroxaban baseline without any missed doses went into atrial fibrillation yesterday would like cardioversion today. He is hemodynamically stable and cardioversion is accomplished without difficulty. Discharge Plan Departure Patient Disposition: Home Clinical Impression: Paroxysmal atrial fibrillation Instructions: DI for Atrial Fibrillation Activity Restrictions/Additional Instructions: Fortunately, we were able to cardiovert you and your now in sinus rhythm again. I recommend follow-up with your placement officer by phone tomorrow to ask for further assistance. Return to the emergency department for recurrent symptoms or chest pain or shortness of breath or other severe symptoms. Continue all your regular medications. You received 80 mg propofol today as the only medication we administered. Prescriptions: No Action rosuvastatin 10 mg tablet 10 mg PO DAILY Qty: 90 3RF Xarelto 20 mg tablet 20 mg PO DAILY sotalol 80 mg tablet 80 mg PO BID Referrals: Henry De Souza MD [Primary Care Provider] -
[2022-06-30 09:35] LABS: Add Manual Diff / Slide Review NO; Basophils Absolute Auto 0 /uL (0-100); Basophils Percent Auto 0.4 % (0-2); Eosinophils Absolute Auto 100 /uL (0-450); Eosinophils Percent Auto 1.2 % (2-4); Hematocrit 48.6 % (41-53); Hemoglobin 16.8 g/dL (13.5-17.5); Lymphocytes Absolute Auto 1700 /uL (1100-4500); Lymphocytes Percent Auto 31.4 % (25-40); Mean Corpuscular HGB Conc 34.6 % (30-36); Mean Corpuscular Hemoglobin 31.7 PG (26-34); Mean Corpuscular Volume 91.5 fL (80-100); Monocytes Absolute Auto 600 /uL (0-900); Monocytes Percent Auto 11.6 % (3-14); Neutrophils Absolute Auto 3000 /uL (1500-7000); Neutrophils Percent Auto 55.4 % (50-75); Platelet Count 185 X10^3/uL (150-400); Red Blood Cell Count 5.32 X10^6/uL (4.5-5.9); Red Cell Distribution Width 14.1 % (11.6-14.8); White Blood Cell Count 5.4 X10^3/uL (4.5-11.0)
[2022-06-30 09:40] LABS: BUN Creatinine Ratio 19.5 (6-22); Blood Urea Nitrogen 17 mg/dL (9-20); Calcium 9.1 mg/dL (8.4-10.2); Carbon Dioxide 28 mmol/L (22-32); Chloride 106 mmol/L (98-107); Creatine Kinase 48 U/L (55-170); Estimated Glomerular Filt Rate > 60 mL/min (>60); Glucose 130 mg/dL (80-110); HEMOLYSIS 19 (0-50); Magnesium 2.1 mg/dL (1.6-2.3); Potassium 4.2 mmol/L (3.4-5.1); Sodium 138 mmol/L (137-145)
[2022-06-30 09:52] LABS: Troponin I < 0.012 ng/mL (0.01-0.034)
[2022-06-30 12:08] LABS: COVID19 -Nasal RAPID Negative (Negative)
[2022-06-30] MEDS: propofoL 200 MG/20 ML VIAL 115 MG IV (12:21)
== END 2022-06-30 13:03 | disposition home or self-care (01) ==
PROVIDERS: Emergency Provider Family Medicine Addiction Medicine; PCP Internal Medicine
DX: I48.0 Paroxysmal atrial fibrillation (principal); Z79.01 Long term (current) use of anticoagulants; Z20.822 Contact with and (suspected) exposure to COVID-19
CPT/HCPCS: 36415; 80048; 82550; 83735; 84484; 85025; 87635; 92960; 93005; 93010; 99284; 99285; 99291; C9803; J2704

== ENCOUNTER → 2022-11-17 09:08 | Outpatient (CLI) | payer MEDICARE, OTHER, SELFPAY ==
[2022-11-17 10:09] LABS: Hematocrit 43.9 % (41-53); Hemoglobin 15.3 g/dL (13.5-17.5); Mean Corpuscular HGB Conc 34.9 % (30-36); Mean Corpuscular Hemoglobin 31.9 PG (26-34); Mean Corpuscular Volume 91.5 fL (80-100); Platelet Count 153 X10^3/uL (150-400); Red Blood Cell Count 4.79 X10^6/uL (4.5-5.9); Red Cell Distribution Width 13.8 % (11.6-14.8); White Blood Cell Count 5.3 X10^3/uL (4.5-11.0)
[2022-11-17 10:45] LABS: Alanine Aminotransferase 30 IU/L (<50); Albumin 4.1 g/dL (3.5-5.0); Albumin Globulin Ratio 1.4 (1.0-2.8); Alkaline Phosphatase 72 U/L (38-126); Amylase 53 U/L (30-110); Aspartate Aminotransferase 25 IU/L (17-59); BUN Creatinine Ratio 15.6 (6-22); Blood Urea Nitrogen 12 mg/dL (9-20); Calcium 8.6 mg/dL (8.4-10.2); Carbon Dioxide 28 mmol/L (22-32); Chloride 102 mmol/L (98-107); Estimated Glomerular Filt Rate > 60 mL/min (>60); Glucose 115 mg/dL (80-110); HEMOLYSIS < 15 (0-50); Lipase 54 U/L (23-300); Potassium 4.5 mmol/L (3.4-5.1); Sodium 138 mmol/L (137-145); Total Protein 7.1 g/dL (6.3-8.2)
== END ==
PROVIDERS: PCP Internal Medicine; Referring Provider Internal Medicine; Visit Provider Internal Medicine
DX: R10.9 Unspecified abdominal pain (principal)
CPT/HCPCS: 36415; 80053; 82150; 83690; 85027

== ENCOUNTER → 2022-11-25 12:47 | Outpatient (CLI) | payer MEDICARE, OTHER, SELFPAY ==
--- NOTE | 2022-11-25 12:50 | DI.CT.S_ITS ---
PROCEDURE: CT ABDOMEN PELVIS W CON INDICATIONS: L sided abdominal pain TECHNIQUE: After the administration of oral and intravenous contrast, axial sections were acquired from the lung bases to the pubic symphysis. Coronal and sagittal reformats were performed. For radiation dose reduction, the following was used: automated exposure control, adjustment of mA and/or kV according to patient size. COMPARISON:[facility], CT, CT ABDOMEN PELVIS W CON, 01/11/2019, 9:40. FINDINGS: Image quality: Adequate Lung bases: No pleural effusion. 3 millimeter right lower lobe pulmonary nodule (5/24) not significantly changed since before. 4 millimeter right middle lobe nodule (5/9) not definitively seen previously. ABDOMEN: Liver: Unremarkable. Gallbladder: Unremarkable. Biliary ducts: Unremarkable. Pancreas: Unremarkable. Spleen: Unremarkable. Adrenal Glands: Unremarkable. Kidneys and Ureters: Unremarkable. Stomach and Bowel: No bowel obstruction. Colonic diverticulosis redemonstrated, severe at the sigmoid colon. At the descending colon there is a subtle small focus of peritoneal thickening, stranding, and possible minimal fluid suspicious for acute diverticulitis (for example series 2, image 50 and series 3, image 40). No diverticular abscess visualized. Peritoneum: No free air or substantial free fluid. Abdominal Nodes: No retroperitoneal or mesenteric adenopathy by size criteria. Vessels: Aorta and inferior vena cava are normal in size. PELVIS: Pelvic Organs: Unremarkable. Bladder: Unremarkable. Pelvic Nodes: No enlarged lymph nodes. Bones: Multilevel degenerative change of the visualized spine. IMPRESSION: 1. Findings present which raise the possibility of early or minimal acute diverticulitis of the descending colon. No diverticular abscess visualized. As there can be overlap in the imaging appearance of diverticulitis and colonic carcinoma, correlation with recent colonoscopy or consideration of colonoscopy after completion of therapy may be helpful. 2. A 4 millimeter right middle lobe pulmonary nodule is present, not definitively seen previously. If the patient is considered low risk, imaging follow-up is not necessary for this finding per Fleischner society guidelines. If the patient is considered high risk, an optional 12 month follow-up chest CT could be obtained. Dictated by: Wilfred Crump M.D. on 11/25/2022 at 17:20 Approved by: Wilfred Crump M.D. on 11/25/2022 at 17:33
== END ==
PROVIDERS: PCP Internal Medicine; Referring Provider Internal Medicine; Visit Provider Internal Medicine
DX: K57.30 Diverticulosis of large intestine without perforation or abscess without bleeding (principal); R10.12 Left upper quadrant pain; R91.8 Other nonspecific abnormal finding of lung field
CPT/HCPCS: 74177; Q9967

== ENCOUNTER → 2023-03-09 10:39 | Outpatient (CLI) | payer MEDICARE, OTHER, SELFPAY ==
[2023-03-09 11:36] LABS: Hematocrit 44.2 % (41-53); Hemoglobin 15.7 g/dL (13.5-17.5); Mean Corpuscular HGB Conc 35.4 % (30-36); Mean Corpuscular Hemoglobin 32.2 PG (26-34); Platelet Count 166 X10^3/uL (150-400); Red Blood Cell Count 4.86 X10^6/uL (4.5-5.9); White Blood Cell Count 4.8 X10^3/uL (4.5-11.0)
[2023-03-09 12:14] LABS: Alanine Aminotransferase 31 IU/L (<50); Albumin 4.4 g/dL (3.5-5.0); Albumin Globulin Ratio 1.5 (1.0-2.8); Alkaline Phosphatase 67 U/L (38-126); Aspartate Aminotransferase 28 IU/L (17-59); BUN Creatinine Ratio 22.2 (6-22); Bilirubin Total 1.7 mg/dL (0.2-1.3); Blood Urea Nitrogen 16 mg/dL (9-20); Carbon Dioxide 26 mmol/L (22-32); Chloride 103 mmol/L (98-107); Cholesterol 154 mg/dL (140-199); Estimated Glomerular Filt Rate > 60 mL/min (>60); Glucose 123 mg/dL (80-110); HDL Cholesterol 53 mg/dL (40-60); HEMOLYSIS < 15 (0-50); LDL Cholesterol Calculated 82 mg/dL (<100); Potassium 4.2 mmol/L (3.4-5.1); Sodium 137 mmol/L (137-145); Total Protein 7.4 g/dL (6.3-8.2); Triglycerides 97 mg/dL (35-150)
[2023-03-09 12:33] LABS: Prostate Specific Antigen 0.475 ng/mL (0.10-4.00)
[2023-03-09 12:35] LABS: TSH w/ Reflex to FT4 1.39 uIU/mL (0.47-4.68)
[2023-03-10 08:35] LABS: Labcorp Hemoglobin (Hb) A1c 5.9 % (4.8-5.6)
== END ==
PROVIDERS: PCP Internal Medicine; Referring Provider Internal Medicine; Visit Provider Internal Medicine
DX: E78.2 Mixed hyperlipidemia (principal); N40.0 Benign prostatic hyperplasia without lower urinary tract symptoms; I48.0 Paroxysmal atrial fibrillation
CPT/HCPCS: 36415; 80053; 80061; 83036; 84153; 84443; 85027

== ENCOUNTER 2023-06-02 11:17 | Emergency (ER) | payer MEDICARE, OTHER, SELFPAY ==
[2023-06-02] VITALS (37 sets, daily range): BP systolic 114–186; BP diastolic 69–107; PULSE 47–75; RESP 12–25; TEMP 36.2; O2SAT 93–98; BMI 36.6
--- NOTE | 2023-06-02 11:25 | DI.RAD.S_ITS ---
PROCEDURE: XR CHEST 1V INDICATIONS: chest pain TECHNIQUE: One view of the chest was acquired. COMPARISON: [facility], CR, XR CHEST 1V, 12/19/2020, 13:48. [facility], CR, XR CHEST 1V, 03/31/2020, 14:23. FINDINGS: Surgical changes and devices: None. Lungs and pleura: Lungs are clear. No pleural effusions or pneumothorax. Mediastinum: Cardiac silhouette is at the upper limit of normal in size. Bones and chest wall: No suspicious bony lesions. Overlying soft tissues appear unremarkable. IMPRESSION: No acute cardiopulmonary abnormality. Dictated by: Wilfred Crump M.D. on 06/02/2023 at 12:46 Approved by: Wilfred Crump M.D. on 06/02/2023 at 12:48
[2023-06-02 12:18] LABS: Add Manual Diff / Slide Review NO; Basophils Absolute Auto 0 /uL (0-100); Basophils Percent Auto 0.3 % (0-2); Eosinophils Absolute Auto 0 /uL (0-450); Eosinophils Percent Auto 0.5 % (2-4); Hematocrit 45.5 % (41-53); Hemoglobin 15.9 g/dL (13.5-17.5); Lymphocytes Absolute Auto 1600 /uL (1100-4500); Lymphocytes Percent Auto 26.1 % (25-40); Mean Corpuscular HGB Conc 34.9 % (30-36); Mean Corpuscular Hemoglobin 32.1 PG (26-34); Mean Corpuscular Volume 91.9 fL (80-100); Monocytes Absolute Auto 700 /uL (0-900); Monocytes Percent Auto 11.1 % (3-14); Neutrophils Absolute Auto 3900 /uL (1500-7000); Platelet Count 160 X10^3/uL (150-400); Red Blood Cell Count 4.95 X10^6/uL (4.5-5.9); Red Cell Distribution Width 13.6 % (11.6-14.8); White Blood Cell Count 6.3 X10^3/uL (4.5-11.0)
[2023-06-02 12:26] LABS: INR 1.2 (0.9-1.3); Prothrombin Time 14.1 SECONDS (10.1-12.7)
[2023-06-02 12:28] LABS: PTT Partial Thromboplastin Tim 31 SECONDS (26-36)
[2023-06-02 12:29] LABS: Alanine Aminotransferase 26 IU/L (<50); Albumin Globulin Ratio 1.3 (1.0-2.8); Alkaline Phosphatase 57 U/L (38-126); Aspartate Aminotransferase 25 IU/L (17-59); BUN Creatinine Ratio 19.7 (6-22); Bilirubin Total 2.2 mg/dL (0.2-1.3); Blood Urea Nitrogen 15 mg/dL (9-20); Calcium 8.8 mg/dL (8.4-10.2); Carbon Dioxide 27 mmol/L (22-32); Chloride 103 mmol/L (98-107); Creatine Kinase 51 U/L (55-170); Estimated Glomerular Filt Rate > 60 mL/min (>60); Globulin 3.1 g/dL (1.7-4.1); Glucose 129 mg/dL (80-110); HEMOLYSIS 30 (0-50); Lipase 61 U/L (23-300); Magnesium 2.1 mg/dL (1.6-2.3); Potassium 4.1 mmol/L (3.4-5.1); Sodium 135 mmol/L (137-145); Total Protein 7.1 g/dL (6.3-8.2)
[2023-06-02 12:41] LABS: Troponin I < 0.012 ng/mL (0.01-0.034)
--- NOTE | 2023-06-02 13:45 | ED_ITS ---
HPI - Arrhythmia/Palpitations General Chief Complaint: Arrhythmia/Palpitations Stated Complaint: says hes in afib Time Seen by Provider: 06/02/23 13:45 Source: patient Mode of arrival: Ambulatory History of Present Illness HPI narrative: This is a 67-year-old male with history of atrial fibrillation on sotalol, Xarelto and rosuvastatin. Patient states he noticed he has been having palpitations. Denies chest pain no shortness of breath no lightheadedness no passing out. No nausea or vomiting no swelling of extremities. No diarrhea constipation. He states new medication changes. He states he is quite sensitive can usually feel if he is in atrial fibrillation. He was last cardioverted June of 2022. Patient states he is not had any cardiac intervention such as ablation stents. No tobacco, occasional alcohol, marijuana but no other recreational drugs. He has had cardioversions in the emergency department. He states he responds better to propofol he remembered when they used a different medication she appears to be etomidate. Patient does use a CPAP but no O2 at home. He wishes to pursue cardioversion if available. Patient follows with Dr. Hare in [place]. Related Data Home Medications Medication Instructions Recorded Confirmed sotalol 80 mg tablet 80 mg PO BID 11/22/20 03/09/23 rivaroxaban 20 mg tablet (Xarelto) 20 mg PO DAILY 03/06/22 03/09/23 Previous Rx's Medication Instructions Recorded rosuvastatin 10 mg tablet 10 mg PO DAILY #90 tabs 07/11/22 Allergies Allergy/AdvReac Type Severity Reaction Status Date / Time No Known Drug Allergies Allergy Verified 06/02/23 11:26 Review of Systems Review of Systems ROS Unobtainable: All systems reviewed & are unremarkable except as noted in HPI and below Patient History Medical History Ankle pain Chicken pox (~1962) Chronic anticoagulation COVID-19 virus infection Elevated blood pressure reading in office with white coat syndrome, without diagnosis of hypertension Foot pain History of colon polyps Impaired fasting glucose Mixed hyperlipidemia Obesity (BMI 30-39.9) Obstructive sleep apnea syndrome (~1979) Paroxysmal atrial fibrillation (~2010) Primary osteoarthritis involving multiple joints RBBB Surgical History Anesthesia History of Achilles tendon repair (~1959) History of foot surgery Status post left rotator cuff repair (~1984) Status post right ankle joint replacement (~2021) Family History Father Loud snoring Hypertension Heart disease Congestive heart failure Family/Other Loud snoring Sleep apnea Mother Cancer Social History details: (Letitia Pierre), 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, 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 No JVD. No swelling bilateral lower extremities. RESPIRATORY: Breath sounds equal bilaterally, no wheezes rales or rhonchi. No tachypnea or accessory muscle use. ABDOMEN: Soft, nontender. Normoactive bowel sounds all 4 quadrants. No guarding or rebound, rigidity, no mass : No CVA tenderness EXTREMITIES: Normal range of motion, no clubbing or edema. Neurovascularly intact NEUROLOGICAL: Cranial nerves II through XII grossly intact. Moving all extremities SKIN: Warm, dry, no petechiae, no rashes or lesions. Initial Vital Signs Initial Vital Signs: Vital Signs Temperature 97.1 F L 06/02/23 11:18 Pulse Rate 62 06/02/23 11:18 Respiratory Rate 15 06/02/23 11:18 Blood Pressure 163/102 H 06/02/23 11:18 Pulse Oximetry 97 06/02/23 11:18 Oxygen Delivery Method Room Air 06/02/23 11:18 Procedures Cardioversion Consent Signed: Yes Indication: atrial fibrillation Stability: Stable Number of attempts (shocks): 1 Joules used: 120 Cardiac rhythm post-cardioversion: sinus bradycardia Procedural Sedation Consent signed: Yes Time out performed: Yes Indication: cardioversion ASA Class: II Mallampati Airway Classification: Class II Time of Last PO Intake: 09:30 Preparation: cardiac catheterization technologist applied, pulse oximeter, capnometry used, supplemental O2 applied, suction/airway equipment at bedside and IV secured IV Propofol dose (mg): 80 ED Sedation Level: Moderate (Concious) Patient Tolerated Procedure: Well and No complications Complications: none Course Orders Ordered: ED Orders 06/02/23 11:25 XR chest 1V Stat EKG-12 Lead Stat 06/02/23 12:09 Complete Blood Count AUTO DIFF Stat Comprehensive Metabolic Panel Stat Lipase Stat Magnesium Stat PTT Partial Thromboplastin Karel Stat Prothrombin Time INR Stat Troponin & CK Cardiac Panel Stat 06/02/23 16:19 EKG-12 Lead Routine Discontinued Medications Propofol (Propofol 200 Mg/20 Ml Vial) 100 mg IV NOW ONE Stop: 06/02/23 15:34 Last Admin: 06/02/23 16:00 Dose: 100 mg Documented By: JENNIFER Vital Signs Vital signs: Vital Signs - 8 hr 06/02/23 12:15 06/02/23 12:15 06/02/23 12:30 Pulse Rate 63 Respiratory Rate 19 Blood Pressure 146/93 H 134/90 Pulse Oximetry 95 06/02/23 12:30 06/02/23 12:45 06/02/23 12:45 Pulse Rate 57 L 59 L Respiratory Rate 18 18 Blood Pressure 149/98 H Pulse Oximetry 95 96 06/02/23 13:00 06/02/23 13:00 06/02/23 13:15 Pulse Rate 60 Respiratory Rate 19 Blood Pressure 132/95 H 146/92 H Pulse Oximetry 95 06/02/23 13:15 06/02/23 13:30 06/02/23 13:30 Pulse Rate 62 63 Respiratory Rate 17 18 Blood Pressure 131/89 Pulse Oximetry 95 95 06/02/23 13:45 06/02/23 13:45 06/02/23 14:00 Pulse Rate 61 Respiratory Rate 18 Blood Pressure 141/89 H 145/87 H Pulse Oximetry 95 06/02/23 14:00 06/02/23 14:15 06/02/23 14:15 Pulse Rate 63 60 Respiratory Rate 19 21 Blood Pressure 154/104 H Pulse Oximetry 96 96 06/02/23 14:30 06/02/23 14:30 06/02/23 14:45 Pulse Rate 60 65 Respiratory Rate 19 16 Blood Pressure 151/103 H Pulse Oximetry 95 96 06/02/23 14:45 06/02/23 15:00 06/02/23 15:00 Pulse Rate 63 Respiratory Rate 16 Blood Pressure 137/95 H 135/89 Pulse Oximetry 96 06/02/23 15:15 06/02/23 15:15 06/02/23 15:30 Pulse Rate 63 Respiratory Rate 19 Blood Pressure 151/99 H 155/100 H Pulse Oximetry 97 06/02/23 15:30 06/02/23 15:53 06/02/23 15:45 Pulse Rate 66 61 Respiratory Rate 20 22 Blood Pressure 186/88 H 146/91 H Pulse Oximetry 96 97 06/02/23 15:45 06/02/23 15:48 06/02/23 15:48 Pulse Rate 73 74 Respiratory Rate 25 H 18 Blood Pressure 163/96 H Pulse Oximetry 96 96 06/02/23 15:51 06/02/23 15:51 06/02/23 16:37 Pulse Rate 69 48 L Respiratory Rate 20 18 Blood Pressure 186/88 H 144/69 H Pulse Oximetry 97 95 06/02/23 16:30 06/02/23 15:54 06/02/23 15:54 Pulse Rate 54 L 72 Respiratory Rate 18 14 Blood Pressure 173/102 H Pulse Oximetry 98 06/02/23 15:57 06/02/23 15:57 06/02/23 16:00 Pulse Rate 71 Respiratory Rate 24 Blood Pressure 152/104 H 153/101 H Pulse Oximetry 97 06/02/23 16:00 06/02/23 16:06 06/02/23 16:06 Pulse Rate 75 70 Respiratory Rate 12 18 Blood Pressure 186/105 H Pulse Oximetry 96 96 06/02/23 16:13 06/02/23 16:13 06/02/23 16:15 Pulse Rate 47 L 47 L Respiratory Rate 21 18 Blood Pressure 114/72 Pulse Oximetry 95 93 06/02/23 16:15 06/02/23 16:20 06/02/23 16:20 Pulse Rate 48 L Respiratory Rate 16 Blood Pressure 125/78 130/77 Pulse Oximetry 95 06/02/23 16:25 06/02/23 16:25 06/02/23 16:30 Pulse Rate 47 L 47 L Respiratory Rate 18 19 Blood Pressure 122/80 Pulse Oximetry 94 95 06/02/23 16:31 06/02/23 16:31 06/02/23 16:36 Pulse Rate 49 L Respiratory Rate 18 Blood Pressure 140/84 144/69 H Pulse Oximetry 95 06/02/23 16:36 06/02/23 16:41 06/02/23 16:41 Pulse Rate 48 L 48 L Respiratory Rate 20 17 Blood Pressure 130/76 Pulse Oximetry 95 94 06/02/23 16:45 06/02/23 16:45 Pulse Rate 49 L Respiratory Rate 18 Blood Pressure 134/78 Pulse Oximetry 95 MDM - Arrhythmia/Palpitations Lab Data 06/02/23 12:09 06/02/23 12:09 Labs: Lab Results 06/02/23 06/02/23 06/02/23 Range/Units 12:09 12:09 12:09 WBC 6.3 (4.5-11.0) X10^3/uL RBC 4.95 (4.5-5.9) X10^6/uL Hgb 15.9 (13.5-17.5) g/dL Hct 45.5 (41-53) % MCV 91.9 (80-100) fL MCH 32.1 (26-34) PG MCHC 34.9 (30-36) % RDW 13.6 (11.6-14.8) % Plt Count 160 (150-400) X10^3/uL Neut % (Auto) 62.0 (50-75) % Lymph % (Auto) 26.1 (25-40) % [place] % (Auto) 11.1 (3-14) % Eos % (Auto) 0.5 L (2-4) % Baso % (Auto) 0.3 (0-2) % Neut # (Auto) 3900 (9742-6419) /uL Lymph # (Auto) 1600 (6048-4346) /uL [place] # (Auto) 700 (0-900) /uL Eos # (Auto) 0 (0-450) /uL Baso # (Auto) 0 (0-100) /uL PT 14.1 H (10.1-12.7) SECONDS INR 1.2 (0.9-1.3) APTT 31 (26-36) SECONDS Sodium 135 L (137-145) mmol/L Potassium 4.1 (3.4-5.1) mmol/L Chloride 103 (98-107) mmol/L Carbon Dioxide 27 (22-32) mmol/L BUN 15 (9-20) mg/dL Creatinine 0.76 (0.66-1.25) mg/dL Estimated GFR > 60 (>60) mL/min BUN/Creatinine Ratio 19.7 (6-22) Glucose 129 H (80-110) mg/dL Calcium 8.8 (8.4-10.2) mg/dL Magnesium 2.1 (1.6-2.3) mg/dL Total Bilirubin 2.2 H (0.2-1.3) mg/dL AST 25 (17-59) IU/L ALT 26 (<50) IU/L Alkaline Phosphatase 57 (38-126) U/L Total Creatine Kinase 51 L (55-170) U/L Troponin I < 0.012 (0.01-0.034) ng/mL Total Protein 7.1 (6.3-8.2) g/dL Albumin 4.0 (3.5-5.0) g/dL Globulin 3.1 (1.7-4.1) g/dL Albumin/Globulin Ratio 1.3 (1.0-2.8) Lipase 61 (23-300) U/L Imaging Data Chest x-ray: Radiologist's Impresson: [address] [id number] Scan ReportSigned Patient: Navneet Stone R#: [id number]: 07/26/1948Acct:[id number]/Sex: 74 / MDate of Service: 06/02/23Loc: EDAccession Number: [id number]? ? Procedure: CT angio chest abdomen pelvis Ordering Provider: Anastasia Petersen D.O. PROCEDURE:? CT ANGIO CHEST ABDOMEN PELVIS ? INDICATIONS:? abd and chest pain, for a long time has hx of aneurysm. ? TECHNIQUE:? Precontrast 5 mm thick sections acquired from the lung apices to the iliac crests.? After the administration of intravenous contrast, 2.5 mm thick sections again acquired from the lung apices to the iliac crests.? Maximum intensity projection (MIP) oblique sagittal and coronal reformats were then acquired.? For radiation dose reduction, the following was used:? automated exposure control.? ? COMPARISON:? [facility], CT, CT ANGIO CHEST ABDOMEN PELVIS, 03/07/2021, 13:48. ? FINDINGS:? Image quality:? Excellent.? ? AORTA and its attachments:? The ascending thoracic aorta is normal in caliber, measuring 3.6 x 3.7 cm.? There is no dissection.? There is classic three-vessel arch anatomy.? Great vessel origins are widely patent.? Significant interval increase in the size of the descending thoracic aorta.? At the level of the left inferior pulmonary vein it previously measured approximately 3.3 x 3.1 cm.? Reference previous image 32/3.? On current image 67/4, there is aneurysmal dilatation measuring 4.7 x 5.2 cm with mild mural thrombus.? There are ulcerations within the neural thrombus.? There is an infrarenal abdominal aortic aneurysm which has increased in size compared to the study from 2020. On previous image 78/3 it measured 3.7 x 3.8 cm.? On current image 180/4 it measures 4.1 x 4.1 cm.? Moderate origin stenosis of the celiac with poststenotic dilatation measuring 1.1 cm.? SMA and bilateral renal arteries are widely patent.? There is a long neck between the lowest renal artery and the beginning of the infrarenal abdominal aortic aneurysm.? The bilateral iliacs and common femorals are patent without aneurysm. ? CHEST:? Lungs and pleura:? No acute airspace opacities.? Small focal area of unchanged rounded atelectasis, left lower lobe.? Mild emphysematous change.? No pleural effusions or pneumothorax.? Central and peripheral airways are patent and normal in caliber.? ? Mediastinum:? Heart size is normal.? No pericardial effusion.? Moderate coronary artery calcifications.? No mediastinal or hilar adenopathy by size criteria.? Central pulmonary arteries are normal in size.? Esophagus is normal in caliber.? Small hiatal hernia. ? Bones and chest wall:? No axillary adenopathy by size criteria.? Thyroid gland is unremarkable .? No suspicious bony lesions.? No vertebral body compression fractures.? ? ? ABDOMEN:? Vasculature:? Celiac trunk and mesenteric arteries are patent.? Renal arteries are also patent.? ? Solid organs:? Liver is normal in size and enhancement.? Gallbladder is unremarkable without calcified gallstones .? Biliary system is non dilated.? Pancreas enhance s normally.? Spleen is normal in size and enhancement.? No adrenal nodules.? Both kidneys are normal in size and enhancement, without hydronephrosis.? ? Peritoneum and bowel:? No free fluid or air.? Bowel loops are normal in caliber and wall thickness.? ? Nodes and vessels:? No retroperitoneal or mesenteric adenopathy by size criteria.? Inferior vena cava is normal in morphology.? ? Miscellaneous:? No ventral hernias.? ? ? PELVIS:? Genitourinary:? Mild diffuse bladder wall thickening.? Mild prostate enlargement. ? Miscellaneous:? No inguinal hernias or adenopathy.? No ventral hernias.? ? Bones:? No suspicious bony lesions.? No vertebral body compression fractures.? Bilateral L5 pars defects.? Diffuse lumbar degenerative change.? Canal stenosis at L3-L4.? Severe bilateral foraminal narrowing at L5-S1. ? ? IMPRESSION:? ? 1. Rapid interval development of a sizable focal descending thoracic aortic aneurysm measuring 4.7 x 5.2 cm. ? 2. Definite interval enlargement of a abdominal aortic aneurysm over a relatively short period of time period in the course of approximately 27 months, 1 of the cross- sectional measurements is increased by 34 mm.? It now measures 4.1 cm. ? 3. Moderate coronary artery calcifications. ? 4. Incidental note made of bilateral L5 pars defects with severe bilateral foraminal stenosis at L5-S1, as well as canal stenosis at L3-L4.? ? Comment:? Recommend referral to a endovascular specialist who provides endovascular treatment for descending thoracic aortic aneurysms, and for consideration of possible treatment of the abdominal aortic aneurysm. ? Dictated by: Ruddy Garcia M.D. on 06/02/2023 at 12:08? ?? Approved by: Ruddy Garcia M.D. on 06/02/2023 at 12:22?? ECG Data Attestation: I personally reviewed and interpreted this ECG as follows: Prior ECG tracings: available for review Interpretation: AFib, rate of 71 QRS 136 QTC 467. No acute ST elevation right bundle-branch block is present. EKG2. Sinus bradycardia rate of 48 TX 204 QRS of 142 and QTC of 453. No acute ST elevation or depression right bundle-branch block is still present. MDM Narrative Medical decision making narrative: 67-year-old male presents with complaint of atrial fibrillation he is rate controlled but is having palpitations. His glucose is 129, his CBC, coags, BNP and LFTs including troponin do not show any acute change. Chest x-ray is negative. Patient has had cardioversions before he does appear to be appropriate candidate he is on Xarelto daily with no missed doses. He is on sotalol. He has had successful cardioversion emergency department in his last 1 was in June of 2022 almost a year ago. Patient would like to pursue. Discussed risks versus benefits. Cardioversion was performed successfully. Patient appears to be in sinus rhythm at this time states his heart rate is normally in the 50s he is in the upper 40s. Discharge Plan Departure Patient Disposition: Home Clinical Impression: Atrial fibrillation Instructions: DI for Atrial Fibrillation Activity Restrictions/Additional Instructions: Call to set up follow up with your cardiology team. Continue your home medications as prescribed. Please return for new or worsening symptoms recurrent palpitations, chest pain, shortness of breath, lightheadedness or passing out, new swelling in her extremities or other new or concerning changes. Prescriptions: No Action rosuvastatin 10 mg tablet 10 mg PO DAILY Qty: 90 4RF Xarelto 20 mg tablet 20 mg PO DAILY sotalol 80 mg tablet 80 mg PO BID Referrals: Henry De Souza MD [Primary Care Provider] - Stand Alone Forms: Patient Portal/API
[2023-06-02] MEDS: propofoL 200 MG/20 ML VIAL 100 MG IV (16:00)
--- NOTE | 2023-06-02 17:00 | PC.NURSE ---
Cardioversion performed at 1507. No complications. Two RT, two RN and physician at the bedside. Pt received 80mg propofol at 1605, shock at 1607 - 120jules. Pt recovered quickly. HR 48, pt states he takes Sodilol and that makes his HR low. Pt states it's common for him to have HR 48 to 60 BPM at rest. Physician aware.
--- NOTE | 2023-06-02 17:12 | PC.NURSE ---
Wasted remainder of propofol with LEVI RN as witness.
== END 2023-06-02 17:18 | disposition home or self-care (01) ==
PROVIDERS: Emergency Provider Emergency Medicine; PCP Internal Medicine
DX: I48.91 Unspecified atrial fibrillation (principal); Z79.01 Long term (current) use of anticoagulants
CPT/HCPCS: 36415; 71045; 80053; 82550; 83690; 83735; 84484; 85025; 85610; 85730; 92960; 93005; 93010; 99152; 99153; 99284; 99285; J2704

== ENCOUNTER → 2023-08-05 13:31 | Outpatient (CLI) | payer MEDICARE, OTHER, SELFPAY ==
--- NOTE | 2023-08-07 14:28 | DI.NM.S_ITS ---
DATE OF SERVICE: 08/05/2023 PROCEDURE: Pharmacological perfusion study. INDICATIONS: Paroxysmal atrial fibrillation with underlying hypertension, right bundle branch block, obstructive sleep apnea. RADIOPHARMACEUTICAL: 26.8 millicurie technetium-99m Myoview IV was injected at stress and 25 millicurie technetium-99m Myoview IV was injected at rest. CARDIAC STRESS: The patient underwent IV Lexiscan perfusion study under the supervision of an attending staff using standard intravenous Lexiscan as per protocol. The patient remained hemodynamically stable. Baseline rhythm sinus with sinus bradycardia and right bundle branch block. Heart rate was in the 50s. During stress no convincing new ischemic changes or new significant sustained arrhythmias. No significant symptoms. RAW DATA: There is increased subdiaphragmatic activity. The patient's weight is 260 pounds. GATED STUDY: Resting LV ejection fraction 61% and stress LV ejection fraction 66% without any significant wall motion abnormalities. Resting end-diastolic volume 143 mL. TID ratio 0.94 which is within normal limits. Lung/heart ratio 0.24, which is within normal limits. MYOCARDIAL PERFUSION SCAN: Stress supine, resting supine, and stress prone images were compared to each other. Stress supine, resting supine images revealed small size, mildly decreased perfusion of inferior wall extending into the inferoapex. During stress prone images, mid to distal inferior wall and inferior apex got improved; however patient remained to have persistently decreased perfusion of basal inferior wall. No reversible ischemia. CONCLUSION: I will call this study likely a normal myocardial perfusion study with evidence of diaphragmatic tissue attenuation artifact, as well as some persistent diaphragmatic tissue attenuation artifact. The stress supine and resting supine images revealed small size, mildly decreased perfusion of inferior wall and inferior apex which got significantly improved during stress prone images; however, patient has persistent basal inferior wall defect. That could be due to persistent diaphragmatic tissue attenuation artifact. There is increased subdiaphragmatic activity on gated study. Left ventricular function preserved without any significant wall motion abnormalities. Hence, likely a normal myocardial perfusion study; however one cannot rule out the possibility of small, nontransmural myocardial infarction of basal inferior wall. Correlate clinically. Summed stress score 2, summed rest score 2 and summed difference score is 0. The patient had exercise perfusion study in Feb, 2011 and that time, as per the report was normal myocardial perfusion. Clemente Blakely - YOSSI/darrius/gabrielle doc#: [id number]/job#: [id number] dd: 08/07/2023 12:42:00 dt: 08/07/2023 14:21:00 DICTATING MD/COPIES TO: Wei Srivastava MD COPIES MNE: SHO;
== END ==
PROVIDERS: PCP Internal Medicine; Referring Provider Internal Medicine Cardiovascular Disease; Visit Provider Internal Medicine Cardiovascular Disease
DX: I48.0 Paroxysmal atrial fibrillation (principal); I45.10 Unspecified right bundle-branch block
CPT/HCPCS: 78452; 93017; A9502; J2785

== ENCOUNTER → 2023-08-11 11:15 | Outpatient (CLI) | payer MEDICARE, OTHER, SELFPAY ==
[2023-08-11 13:02] LABS: BUN Creatinine Ratio 15.6 (6-22); Blood Urea Nitrogen 12 mg/dL (9-20); Calcium 9.3 mg/dL (8.4-10.2); Carbon Dioxide 29 mmol/L (22-32); Chloride 101 mmol/L (98-107); Estimated Glomerular Filt Rate > 60 mL/min (>60); Glucose 108 mg/dL (80-110); HEMOLYSIS < 15 (0-50); Potassium 4.4 mmol/L (3.4-5.1); Sodium 136 mmol/L (137-145)
== END ==
PROVIDERS: PCP Internal Medicine; Referring Provider Internal Medicine Cardiovascular Disease; Visit Provider Internal Medicine Cardiovascular Disease
DX: I48.0 Paroxysmal atrial fibrillation (principal); Z51.81 Encounter for therapeutic drug level monitoring; Z79.899 Other long term (current) drug therapy
CPT/HCPCS: 36415; 80048

== ENCOUNTER 2025-02-18 10:19 | Emergency (ER) | payer MEDICARE, OTHER, SELFPAY ==
[2025-02-18] VITALS (11 sets, daily range): BP systolic 126–152; BP diastolic 67–90; PULSE 50–63; RESP 12–20; TEMP 36.5; O2SAT 91–97; BMI 34.4
--- NOTE | 2025-02-18 10:36 | EKG_ITS ---
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
[2025-02-18 10:59] LABS: Add Manual Diff / Slide Review NO; Basophils Absolute Auto 0 /uL (0-100); Basophils Percent Auto 0.5 % (0-2); Eosinophils Absolute Auto 100 /uL (0-450); Eosinophils Percent Auto 1.1 % (2-4); Hematocrit 43.9 % (41-53); Hemoglobin 15.5 g/dL (13.5-17.5); Lymphocytes Absolute Auto 1700 /uL (1100-4500); Lymphocytes Percent Auto 31.5 % (25-40); Mean Corpuscular HGB Conc 35.4 % (30-36); Mean Corpuscular Hemoglobin 31.7 PG (26-34); Mean Corpuscular Volume 89.8 fL (80-100); Monocytes Absolute Auto 600 /uL (0-900); Monocytes Percent Auto 11.7 % (3-14); Neutrophils Absolute Auto 2900 /uL (1500-7000); Neutrophils Percent Auto 55.2 % (50-75); Platelet Count 173 X10^3/uL (150-400); Red Blood Cell Count 4.89 X10^6/uL (4.5-5.9); Red Cell Distribution Width 13.2 % (11.6-14.8); White Blood Cell Count 5.3 X10^3/uL (4.5-11.0)
[2025-02-18 11:18] LABS: Alanine Aminotransferase 25 IU/L (<50); Albumin 4.2 g/dL (3.5-5.0); Albumin Globulin Ratio 1.6 (1.0-2.8); Alkaline Phosphatase 73 U/L (38-126); Aspartate Aminotransferase 25 IU/L (17-59); BUN Creatinine Ratio 18.8 (6-22); Bilirubin Total 1.3 mg/dL (0.2-1.3); Blood Urea Nitrogen 16 mg/dL (9-20); Calcium 9.1 mg/dL (8.4-10.2); Carbon Dioxide 25 mmol/L (22-32); Chloride 106 mmol/L (98-107); Estimated Glomerular Filt Rate > 60 mL/min (>60); Globulin 2.7 g/dL (1.7-4.1); Glucose 126 mg/dL (70-99); HEMOLYSIS < 15 (0-50); Lipase 54 U/L (23-300); Potassium 4.1 mmol/L (3.4-5.1); Sodium 138 mmol/L (137-145); Total Protein 6.9 g/dL (6.3-8.2)
--- NOTE | 2025-02-18 11:30 | ED_ITS ---
HPI - Abdominal Pain General Chief Complaint: Abdominal Pain Stated Complaint: [facility] rec: poss diverticulitis symptoms Time Seen by Provider: 02/18/25 11:22 History of Present Illness HPI narrative: Patient is a 69-year-old male recently diagnosed with diverticulitis by symptoms finished a 7 day course of Augmentin now presenting today with ongoing left lower quadrant pain. Denies any nausea or vomiting no change in bowel habits denies any bloody stool no fever or chills. He has tried to have a bland diet but definitely notices pain with food. Is currently on Xarelto for AFib but is currently in a sinus rhythm. Related Data Home Medications Medication Instructions Recorded Confirmed rivaroxaban 20 mg tablet (Xarelto) 20 mg PO DAILY 03/06/22 02/09/25 Previous Rx's Medication Instructions Recorded rosuvastatin 10 mg tablet 10 mg PO DAILY #90 tabs 01/16/25 amoxicillin 875 mg-potassium 1 tab PO Q12H #14 tabs 02/09/25 clavulanate 125 mg tablet ciprofloxacin HCl 500 mg tablet 500 mg PO BID #20 tabs 02/18/25 (Cipro) metronidazole 500 mg tablet 500 mg PO Q8H 10 days #30 tabs 02/18/25 Allergies Allergy/AdvReac Type Severity Reaction Status Date / Time No Known Drug Allergies Allergy Verified 02/09/25 11:03 Patient History Medical History RBBB Impaired fasting glucose COVID-19 virus infection Foot pain Ankle pain Chicken pox (~1962) Obesity (BMI 30-39.9) Elevated blood pressure reading in office with white coat syndrome, without diagnosis of hypertension History of colon polyps Obstructive sleep apnea syndrome (~1979) Paroxysmal atrial fibrillation (~2010) Chronic anticoagulation Mixed hyperlipidemia Primary osteoarthritis involving multiple joints Surgical History Anesthesia Status post left rotator cuff repair (~1984) History of foot surgery History of Achilles tendon repair (~1958) Status post right ankle joint replacement (~2021) Family History Father Loud snoring Hypertension Heart disease Congestive heart failure Family/Other Loud snoring Sleep apnea Mother Cancer Social History , 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 HEENT: Head atraumatic,EOMI, pupils reactive, face symmetric, moist mucous membranes CARDIOVASCULAR: Regular rate and rhythm without murmurs, rubs or gallops. RESPIRATORY: Breath sounds equal bilaterally, no wheezes rales or rhonchi. ABDOMEN: Soft, tender left lower quadrant no guarding no rebound no epigastric pain : No CVA tenderness EXTREMITIES: Normal range of motion, no clubbing or edema. Neurovascularly intact NEUROLOGICAL: Alert and oriented x4.Normal gait and speech. Cranial nerves II through XII grossly intact. SKIN: Warm, dry, no laceration, no petechiae, no rashes or lesions. Course Orders Ordered: ED Orders 02/18/25 10:36 EKG-12 Lead Stat 02/18/25 10:40 Complete Blood Count AUTO DIFF Stat Comprehensive Metabolic Panel Stat Lipase Stat 02/18/25 11:36 CT abdomen pelvis w con Stat Discontinued Medications Ciprofloxacin (Ciprofloxacin 250 Mg Tablet) 500 mg PO NOW ONE Stop: 02/18/25 13:03 Last Admin: 02/18/25 13:09 Dose: 500 mg Documented By: JENNIFER Metronidazole (Metronidazole 500 Mg Tablet) 500 mg PO NOW ONE Stop: 02/18/25 13:03 Last Admin: 02/18/25 13:09 Dose: 500 mg Documented By: JENNIFER Ondansetron HCl (Ondansetron 4 Mg/2 Ml Inj) 4 mg IV NOW PRN PRN Reason: Nausea And Vomiting Ondansetron HCl (Ondansetron 4 Mg Odt) 4 mg PO NOW PRN PRN Reason: Nausea And Vomiting Vital Signs Vital signs: Vital Signs - 8 hr 02/18/25 10:24 02/18/25 10:39 02/18/25 10:56 Temperature 97.7 F Pulse Rate 63 60 57 L Respiratory Rate 16 12 15 Blood Pressure 152/90 H Pulse Oximetry 96 95 Oxygen Delivery Method Room Air 02/18/25 10:56 02/18/25 11:00 02/18/25 11:00 Temperature Pulse Rate 54 L Respiratory Rate 17 Blood Pressure 141/77 H 132/73 Pulse Oximetry 95 Oxygen Delivery Method 02/18/25 11:30 02/18/25 11:31 02/18/25 11:31 Temperature Pulse Rate 52 L 52 L Respiratory Rate 17 17 Blood Pressure 137/73 Pulse Oximetry 91 92 Oxygen Delivery Method 02/18/25 12:00 02/18/25 12:01 02/18/25 12:01 Temperature Pulse Rate 58 L 52 L Respiratory Rate 18 18 Blood Pressure 150/72 H Pulse Oximetry 97 96 Oxygen Delivery Method 02/18/25 12:30 02/18/25 12:31 02/18/25 12:31 Temperature Pulse Rate 50 L 50 L Respiratory Rate 18 17 Blood Pressure 126/67 Pulse Oximetry 96 96 Oxygen Delivery Method 02/18/25 13:00 Temperature Pulse Rate 50 L Respiratory Rate 20 Blood Pressure Pulse Oximetry 97 Oxygen Delivery Method MDM - Abdominal Pain Lab Data 02/18/25 10:40 02/18/25 10:40 Labs: Lab Results 02/18/25 Range/Units 10:40 WBC 5.3 (4.5-11.0) X10^3/uL RBC 4.89 (4.5-5.9) X10^6/uL Hgb 15.5 (13.5-17.5) g/dL Hct 43.9 (41-53) % MCV 89.8 (80-100) fL MCH 31.7 (26-34) PG MCHC 35.4 (30-36) % RDW 13.2 (11.6-14.8) % Plt Count 173 (150-400) X10^3/uL Neut % (Auto) 55.2 (50-75) % Lymph % (Auto) 31.5 (25-40) % [place] % (Auto) 11.7 (3-14) % Eos % (Auto) 1.1 L (2-4) % Baso % (Auto) 0.5 (0-2) % Neut # (Auto) 2900 (9485-2330) /uL Lymph # (Auto) 1700 (5675-3175) /uL [place] # (Auto) 600 (0-900) /uL Eos # (Auto) 100 (0-450) /uL Baso # (Auto) 0 (0-100) /uL Sodium 138 (137-145) mmol/L Potassium 4.1 (3.4-5.1) mmol/L Chloride 106 (98-107) mmol/L Carbon Dioxide 25 (22-32) mmol/L BUN 16 (9-20) mg/dL Creatinine 0.85 (0.66-1.25) mg/dL Estimated GFR > 60 (>60) mL/min BUN/Creatinine Ratio 18.8 (6-22) Glucose 126 H (70-99) mg/dL Calcium 9.1 (8.4-10.2) mg/dL Total Bilirubin 1.3 (0.2-1.3) mg/dL AST 25 (17-59) IU/L ALT 25 (<50) IU/L Alkaline Phosphatase 73 (38-126) U/L Total Protein 6.9 (6.3-8.2) g/dL Albumin 4.2 (3.5-5.0) g/dL Globulin 2.7 (1.7-4.1) g/dL Albumin/Globulin Ratio 1.6 (1.0-2.8) Lipase 54 (23-300) U/L Point of care testing: Urine Dip Bedside Urine Glucose Negative Bedside Urine Bilirubin - Negative Bedside Urine Ketone - Negative Urine Specific Outlook 1.010 Bedside Urine Occult Blood - Negative Bedside Urine pH 8.0 Bedside Urine Protein - Negative Bedside Urine Urobilinogen +/- 1mg Bedside Urine Nitrite - Negative Bedside Urine Leukocytes - Negative Esterase Imaging Data CT scan - abdomen/pelvis: Radiologist's Impression: PROCEDURE: CT ABDOMEN PELVIS W CON INDICATIONS: left lower quad pain TECHNIQUE: After the administration of intravenous contrast, axial sections acquired from the lung bases to the pubic symphysis. Coronal and sagittal reformats were performed. For radiation dose reduction, the following was used: automated exposure control, adjustment of mA and/or kV according to patient size. COMPARISON: [facility], CT, CT ABDOMEN PELVIS W CON, 11/25/2022, 14:16. FINDINGS: Image quality: Diagnostic. Lower Chest: No significant findings. ABDOMEN: Liver: No solid mass. Gallbladder: No radiopaque gallstones or wall thickening. Biliary ducts: No biliary dilation. Pancreas: No ductal dilation. Spleen: Size is within normal limits. Adrenal Glands: No adrenal nodules. Kidneys and Ureters: No hydronephrosis. No solid mass. No complex renal cystic lesion which requires follow up. Stomach and Bowel: Multiple diverticula arise from the descending and sigmoid colon associated with colonic focal wall thickening and pericolonic inflammatory change in proximal sigmoid Peritoneum: No abnormal intraperitoneal fluid. No free air. Ventral Wall: Paraumbilical ventral hernia contains fat and small ovoid soft tissue nodules measuring up to 1.2 cm, which appear slightly larger than the prior exam Abdominal Nodes: No retroperitoneal or mesenteric adenopathy by size criteria. Vessels: Aorta and inferior vena cava are normal in size. PELVIS: Pelvic Organs: Unremarkable. Bladder: No bladder wall thickening, accounting for underdistention. Pelvic Nodes: No enlarged lymph nodes. Miscellaneous: No inguinal hernias are seen. Bones: Degenerative disc disease and arthropathy noted in lower lumbar spine. IMPRESSION: Acute sigmoid diverticulitis without perforation or abscess. No obstruction. Small periumbilical ventral hernia contains several small soft tissue nodules without bowel involvement. Nodules do appear slightly larger than the prior exam. Consider nonemergent ultrasound-guided biopsy. Approved by: Graeme Malhotra M.D. on 02/18/2025 at 11:39 ECG Data Attestation: I personally reviewed and interpreted this ECG as follows: Prior ECG tracings: not available for review Interpretation: Normal sinus rhythm rate 62 CT interval 220 QRS [address] changes right bundle-branch block noted similar to previous EKGs in 2022 [facility] Narrative Medical decision making narrative: Patient 69-year-old male presenting today with ongoing left lower quadrant pain. He recently finished 7 days of Augmentin. He appears comfortable but mildly tender on exam no peritoneal signs. Blood work shows WBC of 5.3 no left shift, electrolytes within normal limits, no CHEVY Lipase bilirubin within normal limits CT shows diverticulitis without complication no perforation or abscess EKGs reviewed no ischemia Patient is 69-year-old male presenting today with left lower quadrant pain consistent with diverticulitis. CT does not show any evidence of complication. He has no leukocytosis. At this time would start him on Cipro Flagyl for 10 days. Patient agrees with this plan. At this time does not require anything for pain. Discussed diet with him. Discharge Plan Departure Patient Disposition: Home Clinical Impression: Diverticulitis Instructions: DI for Diverticulitis Activity Restrictions/Additional Instructions: *You have been diagnosed with diverticulitis *What to do: At this time recommend bland liquid diet *Continue to take medications as directed Cipro 500 mg twice a day Flagyl 500 mg 3 times a day *Follow up with your primary care provider in 2-3 days or call [phone] *Return to ER if you should have increasing pain bloody stool or any new, worsening or concerning symptoms Prescriptions: New metronidazole 500 mg tablet 500 mg PO Q8H 10 Days Qty: 30 0RF ciprofloxacin HCl [Cipro] 500 mg tablet 500 mg PO BID Qty: 20 0RF No Action amoxicillin-pot clavulanate 875-125 mg tablet 1 tab PO Q12H Qty: 14 0RF Rx Instructions: take 4-7 days rosuvastatin 10 mg tablet 10 mg PO DAILY Qty: 90 0RF Xarelto 20 mg tablet 20 mg PO DAILY Referrals: Henry De Souza MD [Primary Care Provider] - Stand Alone Forms: Patient Portal/API/Survey
--- NOTE | 2025-02-18 11:36 | DI.CT.S_ITS ---
PROCEDURE: CT ABDOMEN PELVIS W CON INDICATIONS: left lower quad pain TECHNIQUE: After the administration of intravenous contrast, axial sections acquired from the lung bases to the pubic symphysis. Coronal and sagittal reformats were performed. For radiation dose reduction, the following was used: automated exposure control, adjustment of mA and/or kV according to patient size. COMPARISON: [facility], CT, CT ABDOMEN PELVIS W CON, 11/25/2022, 14:16. FINDINGS: Image quality: Diagnostic. Lower Chest: No significant findings. ABDOMEN: Liver: No solid mass. Gallbladder: No radiopaque gallstones or wall thickening. Biliary ducts: No biliary dilation. Pancreas: No ductal dilation. Spleen: Size is within normal limits. Adrenal Glands: No adrenal nodules. Kidneys and Ureters: No hydronephrosis. No solid mass. No complex renal cystic lesion which requires follow up. Stomach and Bowel: Multiple diverticula arise from the descending and sigmoid colon associated with colonic focal wall thickening and pericolonic inflammatory change in proximal sigmoid Peritoneum: No abnormal intraperitoneal fluid. No free air. Ventral Wall: Paraumbilical ventral hernia contains fat and small ovoid soft tissue nodules measuring up to 1.2 cm, which appear slightly larger than the prior exam Abdominal Nodes: No retroperitoneal or mesenteric adenopathy by size criteria. Vessels: Aorta and inferior vena cava are normal in size. PELVIS: Pelvic Organs: Unremarkable. Bladder: No bladder wall thickening, accounting for underdistention. Pelvic Nodes: No enlarged lymph nodes. Miscellaneous: No inguinal hernias are seen. Bones: Degenerative disc disease and arthropathy noted in lower lumbar spine. IMPRESSION: Acute sigmoid diverticulitis without perforation or abscess. No obstruction. Small periumbilical ventral hernia contains several small soft tissue nodules without bowel involvement. Nodules do appear slightly larger than the prior exam. Consider nonemergent ultrasound-guided biopsy. Approved by: Graeme Malhotra M.D. on 02/18/2025 at 11:39
[2025-02-18] MEDS: metroNIDAZOLE 500 MG TABLET PO (13:09)
[2025-02-18] MEDS: CIPROFLOXACIN 250 MG TABLET 500 MG PO (13:09)
== END 2025-02-18 13:12 | disposition home or self-care (01) ==
PROVIDERS: Emergency Provider Emergency Medicine; PCP Internal Medicine
DX: K57.92 Diverticulitis of intestine, part unspecified, without perforation or abscess without bleeding (principal); I48.91 Unspecified atrial fibrillation
CPT/HCPCS: 36415; 74177; 80053; 81003; 83690; 85025; 93005; 93010; 99283; 99284; Q9967

== ENCOUNTER → 2025-03-30 11:32 | Outpatient (CLI) | payer MEDICARE, OTHER, SELFPAY ==
[2025-03-30 12:02] LABS: Hemoglobin A1C% w Est Avg Glu 5.4 % (4.0-6.0)
[2025-03-30 17:50] LABS: Prostate Specific Antigen 0.503 ng/mL (0.10-4.00)
[2025-03-30 18:06] LABS: BUN Creatinine Ratio 18.8 (6-22); Blood Urea Nitrogen 15 mg/dL (9-20); Calcium 9.4 mg/dL (8.4-10.2); Carbon Dioxide 24 mmol/L (22-32); Chloride 103 mmol/L (98-107); Cholesterol 147 mg/dL (140-199); Estimated Glomerular Filt Rate > 60 mL/min (>60); Glucose 110 mg/dL (70-99); HDL Cholesterol 49 mg/dL (40-60); HEMOLYSIS 19 (0-50); LDL Cholesterol Calculated 75 mg/dL (<100); Potassium 4.7 mmol/L (3.4-5.1); Sodium 138 mmol/L (137-145); Triglycerides 114 mg/dL (35-150)
== END ==
PROVIDERS: PCP Internal Medicine; Referring Provider Internal Medicine; Visit Provider Internal Medicine
DX: R73.01 Impaired fasting glucose (principal); E78.2 Mixed hyperlipidemia; N40.1 Benign prostatic hyperplasia with lower urinary tract symptoms; N13.8 Other obstructive and reflux uropathy
CPT/HCPCS: 36415; 80048; 80061; 83036; 84153

== ENCOUNTER 2025-05-05 08:04 | Day surgery (SDC) | payer MEDICARE, OTHER, SELFPAY ==
[2025-05-05 08:33] VITALS: BP 110/87; PULSE 71; RESP 16; TEMP 36.2; O2SAT 98
[2025-05-05] MEDS: LACTATED RINGERS 1,000 ML 42 ML IV (08:37)
--- NOTE | 2025-05-05 08:55 | PM.HP.IH.1 ---
History of Present Illness History of Present Illness Date Patient Seen: 05/05/25 Time Patient Seen: 08:56 Chief complaint: Dx Colonoscopy w/poss bx Narrative: 69yo M, h/o benign polyps 6 yrs ago, h/o diverticulitis, no symptoms now. [facility] Medical History (Updated 04/25/25 @ 12:19 by Henry De Souza MD) RBBB Impaired fasting glucose COVID-19 virus infection Foot pain Ankle pain Chicken pox (~1962) Obesity (BMI 30-39.9) Elevated blood pressure reading in office with white coat syndrome, without diagnosis of hypertension History of colon polyps Obstructive sleep apnea syndrome (~1979) Paroxysmal atrial fibrillation (~2010) Chronic anticoagulation Mixed hyperlipidemia Primary osteoarthritis involving multiple joints Surgical History (Updated 04/25/25 @ 12:20 by Henry De Souza MD) Anesthesia Status post left rotator cuff repair (~1984) History of foot surgery History of Achilles tendon repair (~1958) Status post right ankle joint replacement (~2021) Family History Father Loud snoring Hypertension Heart disease Congestive heart failure Family/Other Loud snoring Sleep apnea Mother Cancer Social History (Updated 03/30/25 @ 08:40 by Lexie Rodriguez MA) marital status: details: (Letitia Pierre), 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, 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: 2 household members: spouse lives independently: Yes housing: house pets and animals: Yes education level: college occupational status: previously employed current occupational exposures/hazards: No 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: none travel history: recent leisure activities: sports, exercise, art, games, reading and volunteer work seatbelt use: always helmet use: Yes water heater temp set < 120 deg: Yes working smoke detector in home: Yes fire extinguisher in home: Yes carbon monox detector in home: No firearms in home: No do you feel safe at home: Yes Smoking Status: Never smoker second hand exposure: Yes alcohol intake: current during the past year weight has: decreased > 10 lbs well-balanced diet: daily or most days daily servings fruits/ve-4 caffeine: Yes eating out: rarely or never Type(s) of exercise: walking, bicycling, regular exercise and other frequency: 3-4 times per week duration: 30-45 minutes/day Meds Home Medications and Allergies Home Medications ?Medication ?Instructions ?Recorded ?Confirmed ?Type rivaroxaban 20 mg tablet (Xarelto) 20 mg PO DAILY 03/06/22 04/25/25 History peg 3350-electrolytes 236 240 ml PO Q10M #4,000 mL 03/27/25 04/25/25 Rx gram-22.74 gram-6.74 gram-5.86 gram solution (Golytely) rosuvastatin 10 mg tablet 10 mg PO DAILY #90 tabs 04/19/25 04/25/25 Rx Allergies Allergy/AdvReac Type Severity Reaction Status Date / Time No Known Drug Allergies Allergy Verified 04/25/25 12:01 Exam Vital Signs (past 8 hours): - 05/05/25 08:33 Temperature 97.2 F L Pulse Rate 71 Respiratory Rate 16 Blood Pressure 110/87 Pulse Oximetry 98 Oxygen Delivery Method Room Air Oxygen Delivery Method Room Air Const General: comfortable Orientation: alert, awake and oriented x3 Resp Effort & Inspection: normal respiratory effort Auscultation: clear to auscultation bilaterally Cardio Rate: regular rate Rhythm: regular rhythm GI Palpation: soft (nontender) Extrem Other: Without pitting edema Assessment & Plan Assessment and plan (1) History of colon polyps: Status: Acute Assessment & Plan narrative: Need for screening colonosocpy H/O diverticulitis, benign polyps Plan screening colonoscopy. The risks, benefits and options regarding the procedure were explained to the patient in detail. Risk discussion included but not limited to: infection, bleeding, perforation, missed lesions, unable to reach cecum. The patient was encouraged to ask questions and they were answered to their satisfaction. The patient understands and is agreeable to proceed. Time-Based Coding :: [TOTAL MINUTES] spent with patient and on the chart (including review of chart, obtaining history, exam, reviewing outside data, placing orders, documenting exam and treatment plan, and counseling patient) on [DATE]. PROFEE Global Implementation Manager Document charge(s): Yes Charge Codes Inpatient/observation care including admit and discharge same day: [id number]
[2025-05-05 09:20] VITALS: BP 118/58; PULSE 53; RESP 12; TEMP 36.6; O2SAT 95
[2025-05-05 09:25] VITALS: BP 110/58; PULSE 51; RESP 14; O2SAT 96
--- NOTE | 2025-05-05 09:26 | P.OP.COLON_ITS ---
Operative Date/Time/Diagnoses Date of procedure: 05/05/25 Time of procedure: 09:26 Pre-op diagnosis: H/O benign polyps, diverticulitis Post-op diagnosis: same Procedure & Clinicians Study performed: Colonoscopy Same procedure(s) as scheduled: Yes Indications: 69yo M with h/o diverticulitis, benign polyps Surgeon: Cipriano Mosher Anesthesia Type: MAC +/- Procedure Notes SCOAP/Timeout: Performed Procedure in detail: Patient placed in left lateral recumbent position. Time out was performed. Procedural sedation was administered by anesthesia. Examination began with a thorough inspection of the perianal area. There was no evidence of fissures, fistulae, external hemorrhoids or cutaneous malignancy. The colonoscope was then placed into the rectum and the lumen was insufflated with carbon dioxide. The scope was carefully advanced forward. Ultimately the cecum was intubated and confirmed by identification of the ileocecal valve, the appendiceal orifice and the confluence of the taenia. The scope was then slowly withdrawn examining the colon thoroughly in all directions. In the rectum, retroflexion of the scope was performed for inspection of the distal rectum and anal canal. ?The colonoscopy was notable for the following: ?1. Quality of the preparation-poor, [place] 1, large amount of solid stool ?2. Areas of solid stool irrigated and suctioned where possible, poor prep in sigmoid, reasonable prep in ascending, transverse, proximal descending colons. 3. Extensive sigmoid diverticulosis 4. No polyps seen given limitations of prep quality Scope withdrawal time: 8 mins Findings: divertiulosis Specimen(s): none sent Complications: none Impression: No polyps today Extensive sigmoid diverticulosis Poor prep Recommend next screening in 10 years Post-procedure Recommendations: Colonoscopy in 10 years Plan for aftercare: Regular diet Diverticulosis precautions Follow up: as needed Disposition: PACU
[2025-05-05 09:35] VITALS: BP 113/63; PULSE 51; RESP 16; O2SAT 94
== END 2025-05-05 09:45 | disposition home or self-care (01) ==
PROVIDERS: Surgery; PCP Internal Medicine; Referring Provider Surgery; Visit Provider Surgery
PROC: 0DJD8ZZ Inspection of Lower Intestinal Tract, Via Natural or Artificial Opening Endoscopic (ICD-10-PCS; CPT 45378; principal; 2025-05-05 09:15)
DX: Z12.11 Encounter for screening for malignant neoplasm of colon (principal); Z86.0100 Personal history of colon polyps, unspecified; Z87.19 Personal history of other diseases of the digestive system; K57.30 Diverticulosis of large intestine without perforation or abscess without bleeding
CPT/HCPCS: G0105; J2704

== ENCOUNTER → 2025-06-06 14:48 | Outpatient (CLI) | payer MEDICARE, OTHER, SELFPAY ==
--- NOTE | 2025-06-06 14:50 | DI.RAD.S_ITS ---
PROCEDURE: XR PELVIS 1-2V INDICATIONS: groin strain TECHNIQUE: 1 view(s) of the pelvis acquired. COMPARISON: None. FINDINGS: Bones: No fractures or dislocations. Moderate to severe right and mild left hip joint degeneration. No suspicious bony lesions. Degenerative changes of the visualized lower lumbar spine and pubic symphysis. Soft tissues: Visualized bowel gas pattern is normal. No suspicious soft tissue calcifications. IMPRESSION: No acute bony abnormality. Moderate to severe right and mild left hip joint degeneration. Dictated by: Cayden Cardenas M.D. on 06/06/2025 at 19:15 Approved by: Cayden Cardenas M.D. on 06/06/2025 at 19:15
== END ==
PROVIDERS: PCP Internal Medicine; Referring Provider Internal Medicine; Visit Provider Internal Medicine
DX: S76.219A Strain of adductor muscle, fascia and tendon of unspecified thigh, initial encounter (principal); M16.0 Bilateral primary osteoarthritis of hip; X58.XXXA Exposure to other specified factors, initial encounter
CPT/HCPCS: 72170